=== PATIENT | male | born 1950 | race Caucasian/White ===

== ENCOUNTER 2020-09-09 11:32 | Observation (INO) | payer MEDICARE, OTHER ==
[2020-09-09] MEDS ORDERED: Sodium Chloride 0.9% 10 ML Syringe FLUSH PRN ×2 (11:47→13:13)
[2020-09-09] MEDS ORDERED: Sodium Chloride 0.9% 1,000 ML IV ONE (11:47)
--- NOTE | 2020-09-09 12:05 | EDM.PDOC ---
ED HPI GENERAL MEDICAL PROBLEM - General Chief Complaint: General Stated Complaint: GENERALIZED WEAKNESS Time Seen by Provider: 09/09/20 11:35 Source of Information: Reports: Patient, Old Records, Provider History Limitations: Reports: No Limitations - History of Present Illness INITIAL COMMENTS - FREE TEXT/NARRATIVE: 69 YO WM PRESENTS TO ER BY EMS FROM [facility] WITH GENERALIZED WEAKNESS. PT WAS RECENTLY TRANSFERRED TO [facility] AFTER CVA WITH LEFT HEMIPARESIS. PT HAS BEEN REHABBING AT [facility] BUT ACCORDING TO NURSING HE HASN'T BEEN EATING OR DRINK WELL SINCE ARRIVAL AND HAS HAD DECREASED URINE OUTPUT OVER THE LAST FEW DAYS. PT WITH HISTORY DYSPHAGIA SECONDARY TO CVA. PT HAS BEEN BECOMING MORE WEAK OVER THE LAST FEW DAYS. PROVIDER ORDERED LABS YESTERDAY WHICH REVEALED RENAL INSUFFICIENCY, WITH A CR GREATER THAN 2.0. UPON ADMISSION, PT HAD CR OF 1.0 AND NO KNOWN KIDNEY DISEASE. THIS AM PT WAS FOUND TO BE HYPOTENSIVE WITH SYSTOLIC BP LESS THAN 90. PT WAS GIVEN HIS MORNING ANTIHYPERTENSIVE MEDICATIONS PER DC RECORDS. PT DENIES CHEST PAIN, SHORTNESS OF BREATH, OR HEADACHE. PT REPORTS HIS MOUTH IS DRY AND DENIES ANY COMPLAINTS AT THIS TIME. PT IS ALERT AND ABLE TO RESPOND TO COMMANDS AND BASIC QUESTIONING APPROPRIATELY. Duration: Day(s): (2) Location: Reports: Generalized Severity: Mild Improves with: Reports: None Worsens with: Reports: None - Related Data Home Meds: Home Meds Aspirin [Aspirin EC] 81 mg PO DAILY 09/09/20 [History] ED ROS GENERAL - Review of Systems Review Of Systems: See Below Constitutional: Reports: Weakness HEENT: Reports: No Symptoms Respiratory: Reports: No Symptoms Cardiovascular: Reports: Blood Pressure Problem Endocrine: Reports: No Symptoms GI/Abdominal: Reports: Anorexia, Decreased Appetite, Difficulty Swallowing Musculoskeletal: Reports: No Symptoms Skin: Reports: No Symptoms Neurological: Reports: Pre-Existing Deficit, Difficulty Walking, Weakness Psychiatric: Reports: No Symptoms Hematologic/Lymphatic: Reports: No Symptoms Immunologic: Reports: No Symptoms ED EXAM, GENERAL - Physical Exam Exam: See Below Exam Limited By: No Limitations General Appearance: Alert, WD/WN, No Apparent Distress Eye Exam: Bilateral Eye: Corneal Abrasion, PERRL Throat/Mouth: Normal Lips, Normal Teeth, Normal Gums, Normal Oropharynx, Dysphagia, Other (DRY MUCOUS MEMBRANES) Head: Atraumatic, Normocephalic Neck: Normal Inspection, Supple, Non-Tender, Full Range of Motion Respiratory/Chest: No Respiratory Distress, Lungs Clear, Normal Breath Sounds, No Accessory Muscle Use, Chest Non-Tender Cardiovascular: Normal Peripheral Pulses, Regular Rate, Rhythm, No Edema, No Gallop, No JVD, No Murmur, No Rub, Bradycardia GI/Abdominal: Normal Bowel Sounds, Soft, Non-Tender, No Organomegaly, No Distention, No Abnormal Bruit, No Mass Back Exam: Normal Inspection Extremities: Normal Inspection, Non-Tender, No Pedal Edema, Normal Capillary Refill Neurological: Alert, CN II-XII Intact, Normal Cognition, Normal Reflexes Psychiatric: Normal Mood, Flat Affect Skin Exam: Warm, Dry, Intact, Normal Color, No Rash Lymphatic: No Adenopathy #1 Interpretation EKG Date: 09/09/20 Time: 12:06 Rhythm: NSR Rate (Beats/Min): 57 [place]: LAD-Left [place] Deviation P-Wave: Present QRS: Normal ST-T: Normal QT: Normal Comparison: NA - No Prior EKG Course - Orders/Labs/Meds Orders: Active Orders 24 hr Category Date Time Status EKG Documentation Completion [RC] ASDIRECTED Care 09/09/20 11:52 Active Peripheral IV Care [RC] . DIRECTED Care 09/09/20 11:47 Active Chest 1V Frontal [CR] Stat Exams 09/09/20 12:41 Ordered Sodium Chloride 0.9% [Saline Flush] Med 09/09/20 11:47 Active 10 ml FLUSH Q8HR PRN Peripheral IV Insertion Adult [OM.PC] Routine Oth 09/09/20 11:47 Ordered EKG 12 Lead [EK] Stat Ther 09/09/20 11:51 Ordered Medication Orders Sodium Chloride (Saline Flush) 10 ml FLUSH Q8HR PRN PRN Reason: keep vein open Labs: Laboratory Tests 09/09/20 09/09/20 09/09/20 Range/Units 11:45 11:45 11:45 WBC 8.06 (5.00-10.00) 10^3/uL RBC 4.70 (4.50-6.00) 10^6/uL Hgb 12.6 L (13.0-17.0) g/dL Hct 38.8 L (40.0-52.0) % MCV 82.6 (82.0-92.0) fL MCH 26.8 L (27.0-31.0) pg MCHC 32.5 (32.0-36.0) g/dL RDW 14.5 (11.5-14.5) % Plt Count 216 (150-400) 10^3/uL MPV 10.3 (7.4-10.4) fL Immature Gran % (Auto) 0.4 (0.0-5.0) % Neut % (Auto) 55.7 (50.0-70.0) % Lymph % (Auto) 23.9 (20.0-40.0) % [place] % (Auto) 9.2 H (2.0-8.0) % Eos % (Auto) 9.9 H (1.0-3.0) % Baso % (Auto) 0.9 (0.0-1.0) % Neut # (Auto) 4.49 (2.50-7.00) 10^3/uL Lymph # (Auto) 1.93 (1.00-4.00) 10^3/uL [place] # (Auto) 0.74 (0.10-0.80) 10^3/uL Eos # (Auto) 0.80 H (0.10-0.30) 10^3/uL Baso # (Auto) 0.07 (0.00-0.10) 10^3/uL Immature Gran # (Auto) 0.03 (0.00-0.50) 10^3/uL Sodium 145 (136-145) mmol/L Potassium 3.9 (3.5-5.1) mmol/L Chloride 107 (98-107) mmol/L Carbon Dioxide 25.0 (21.0-32.0) mmol/L Anion Gap 16.9 H (5-15) mmol/L BUN 72 H* (7-18) mg/dL Creatinine 2.49 H (0.51-1.17) mg/dL Est Cr Clr Drug Dosing TNP Estimated GFR (MDRD) 26 mL/min Glucose 230 H (70-140) mg/dL Lactic Acid 2.4 H (0.4-2.0) mmol/L Calcium 9.5 (8.7-10.3) mg/dL Troponin I (0.000-0.056) ng/mL 09/09/20 Range/Units 11:45 WBC (5.00-10.00) 10^3/uL RBC (4.50-6.00) 10^6/uL Hgb (13.0-17.0) g/dL Hct (40.0-52.0) % MCV (82.0-92.0) fL MCH (27.0-31.0) pg MCHC (32.0-36.0) g/dL RDW (11.5-14.5) % Plt Count (150-400) 10^3/uL MPV (7.4-10.4) fL Immature Gran % (Auto) (0.0-5.0) % Neut % (Auto) (50.0-70.0) % Lymph % (Auto) (20.0-40.0) % [place] % (Auto) (2.0-8.0) % Eos % (Auto) (1.0-3.0) % Baso % (Auto) (0.0-1.0) % Neut # (Auto) (2.50-7.00) 10^3/uL Lymph # (Auto) (1.00-4.00) 10^3/uL [place] # (Auto) (0.10-0.80) 10^3/uL Eos # (Auto) (0.10-0.30) 10^3/uL Baso # (Auto) (0.00-0.10) 10^3/uL Immature Gran # (Auto) (0.00-0.50) 10^3/uL Sodium (136-145) mmol/L Potassium (3.5-5.1) mmol/L Chloride (98-107) mmol/L Carbon Dioxide (21.0-32.0) mmol/L Anion Gap (5-15) mmol/L BUN (7-18) mg/dL Creatinine (0.51-1.17) mg/dL Est Cr Clr Drug Dosing Estimated GFR (MDRD) mL/min Glucose (70-140) mg/dL Lactic Acid (0.4-2.0) mmol/L Calcium (8.7-10.3) mg/dL Troponin I < 0.017 (0.000-0.056) ng/mL Meds: Medications Generic Name Dose Route Start Last Admin Trade Name Freq PRN Reason Stop Dose Admin Sodium Chloride 10 ml 09/09/20 11:47 Saline Flush FLUSH Q8HR PRN keep vein open Discontinued Medications Generic Name Dose Route Start Last Admin Trade Name Brittanie PRN Reason Stop Dose Admin Sodium Chloride 1,000 mls @ 999 mls/hr 09/09/20 11:47 Normal Saline IV 09/09/20 12:47 .BOLUS ONE - Radiology Interpretation Free Text/Narrative:: CXR- NAD - Re-Assessments/Exams Free Text/Narrative Re-Assessment/Exam: 09/09/20 13:11 BP-122/55 AFTER FLUID BOLUS-PT AWAKE AND ALERT. WILL ADMIT FOR HYDRATION AND REPEAT LABS Departure - Departure Time of Disposition: 13:10 Disposition: Refer to Observation Condition: Fair Clinical Impression: Acute renal failure, Dehydration Hypotension Qualifiers: Hypotension type: orthostatic hypotension Qualified Code(s): I95.1 - Orthostatic hypotension - Discharge Information Referrals: Addis Perea MD [Primary Care Provider] - Forms: ED Department Discharge - My Orders Last 24 Hours: My Active Orders 09/09/20 11:47 Peripheral IV Care [RC] . DIRECTED Sodium Chloride 0.9% [Saline Flush] 10 ml FLUSH Q8HR PRN Peripheral IV Insertion Adult [OM.PC] Routine 09/09/20 11:51 EKG 12 Lead [EK] Stat 09/09/20 11:52 EKG Documentation Completion [RC] ASDIRECTED 09/09/20 12:41 Chest 1V Frontal [CR] Stat - Assessment/Plan Last 24 Hours: My Active Orders 09/09/20 11:47 Peripheral IV Care [RC] . DIRECTED Sodium Chloride 0.9% [Saline Flush] 10 ml FLUSH Q8HR PRN Peripheral IV Insertion Adult [OM.PC] Routine 09/09/20 11:51 EKG 12 Lead [EK] Stat 09/09/20 11:52 EKG Documentation Completion [RC] ASDIRECTED 09/09/20 12:41 Chest 1V Frontal [CR] Stat Assessment:: 1. DEHYDRATION DUE TO DECREASED PO INTAKE 2. HYPOTENSION-IMPROVED AFTER FLUID BOLUS 3. ELEVATED LACTIC ACID- MOST LIKELY DUE TO ACIDOSIS FROM DEHYDRATION 4. RENAL INSUFFICIENCY-ACUTE RENAL [id number] AZOTEMIA Plan: 1. ADMIT TO MEDICINE- MARCELA TERESA SULPHATE TESTER- OBSERVATION 2. FLUIDS- NS@100CC/HR 3. REPEAT LABS IN AM 4. TREND LACTIC ACID 5. SUPPORTIVE CARE
[2020-09-09 12:22] LABS: ANION GAP 16.9 mmol/L (5-15); CHLORIDE,CL 107 mmol/L (98-107); SODIUM,NA 145 mmol/L (136-145)
[2020-09-09] MEDS: Sodium Chloride 0.9% 1,000 ML IV SCH ×2 (13:00→21:13)
--- NOTE | 2020-09-09 13:50 | CR ---
[id number] RAD/RAD Chest PA or AP 1V EXAM: SINGLE VIEW CHEST. INDICATION: ELEVATED LACTIC ACID COMPARISON: CORRELATION IS MADE WITH JUNE 26, 2007 FINDINGS: The lungs are clear The cardiomediastinal contour is stable IMPRESSION: NO PNEUMONIA Delbert Michael MD 09/09/20 [id number] Thank you for allowing us to participate in the care of your patient.
--- NOTE | 2020-09-09 14:33 | PCM.HP.2 ---
H&P History of Present Illness - General Date of Service: 09/09/20 Admit Problem/Dx: Admission Diagnosis/Problem Admission Diagnosis/Problem Dehydration Source of Information: Patient History Limitations: Reports: Physical Impairment, Other (h/o CVA left side, will nod head, but is not verbal at this time) - History of Present Illness Initial Comments - Free Text/Narative: 69 year old male admitted to observation status with acute kidney injury and dehydration. 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 He is a new resident to [facility] for rehab. group home reported patient had not been eating or drinking well and had decreased urine output. Lab was evaluated at the assisted on 09/08/2020 revealing a BUN 70, creatinine 2.65 and GFR 24, patient had previously had normal kidney function. He was transferred to ED via ambulance on the AM of 09/09/2020 for decreased LOC, decreased urine output and hypotension. - Related Data Allergies/Adverse Reactions: Allergies Allergy/AdvReac Type Severity Reaction Status Date / Time No Known Allergies Allergy Verified 09/09/20 16:20 Home Medications: Home Meds Acetaminophen [Tylenol] 650 mg PO Q4HR PRN 09/09/20 [History] Aspirin [Aspirin EC] 81 mg PO DAILY 09/09/20 [History] Clopidogrel Bisulfate [Clopidogrel] 75 mg PO DAILY 09/09/20 [History] Enoxaparin [Lovenox] 40 mg SUBCUT DAILY 09/09/20 [History] Mirtazapine [Remeron] 15 mg PO BEDTIME 09/09/20 [History] Multivit-Min/FA/Lycopen/Lutein [Sentry Senior Tablet] 1 tab PO ACDINNER 09/09/20 [History] RX: Escitalopram Oxalate 10 mg PO DAILY 09/09/20 [History] RX: Famotidine 20 mg PO BID 09/09/20 [History] RX: Loratadine 10 mg PO DAILY 09/09/20 [History] RX: carvediloL [Carvedilol] 25 mg PO BID 09/09/20 [History] RX: hydroCHLOROthiazide [Hydrochlorothiazide] 25 mg PO DAILY 09/09/20 [History] atorvaSTATin Calcium [Atorvastatin Calcium] 80 mg PO BEDTIME 09/09/20 [History] guaiFENesin [Guaifenesin ER] 600 mg PO Q12HR 09/09/20 [History] hydrALAZINE HCl [Hydralazine HCl] 50 mg PO TID 09/09/20 [History] lisinopriL [Lisinopril] 20 mg PO BID 09/09/20 [History] metFORMIN HCl [Metformin HCl ER] 500 mg PO BID 09/09/20 [History] Past Medical History HEENT History: Reports: Impaired Vision Cardiovascular History: Reports: Hypertension Neurological History: Reports: CVA, Speech Problems Endocrine/Metabolic History: Reports: Diabetes, Type II - Past Surgical History HEENT Surgical History: Reports: Cataract Surgery Social & Family History - Family History Family Medical History: Unobtainable - Tobacco Use Tobacco Use Status *Q: Former Tobacco User - Alcohol Use Alcohol Use History: No H&P Review of Systems - Review of Systems: Review Of Systems: See Below Free Text/Narrative: Patient denies any concerns or pain at this time by shaking his head. General: Reports: Weakness, Fatigue, Decreased Appetite. Denies: Fever, Chills HEENT: Reports: Dysphasia. Denies: Headaches, Sore Throat, Visual Changes Pulmonary: Denies: Shortness of Breath, Cough, Sputum Cardiovascular: Denies: Chest Pain, Palpitations, Edema, Lightheadedness Gastrointestinal: Reports: Decreased Appetite, Difficulty Swallowing. Denies: Abdominal Pain, Constipation, Diarrhea, Nausea, Vomiting Genitourinary: Denies: Dysuria, Hematuria, Flank Pain Musculoskeletal: Denies: Neck Pain, Shoulder Pain, Muscle Pain Skin: Reports: Bruising (on abdomen). Denies: Rash, Erythema Psychiatric: Denies: Confusion, Anxiety, Agitation Neurological: Reports: Paresthesia (left), Pre-Existing Deficit (left), Trouble Speaking. Denies: Confusion, Headache Hematologic/Lymphatic: Denies: Swollen Glands Exam - Exam Exam: See Below - Exam Physical Exam Comments:: GENERAL: Ill-appearing adult in no acute distress. Sleeping in bed, arouses easily when name said HEENT: Normocephalic, atraumatic. Conjunctiva clear. Nares patent without discharge. Mucous membranes dry NECK: Supple, no masses. CV: Regular rate and rhythm, 3/6 systolic murmur, no rubs or gallops. 2+ radial pulses. PULMONARY: Normal effort, crackles noted to bilateral bases that clear with deep breathing, lungs are diminished. ABDOMEN: Positive bowel sounds, soft, nontender, nondistended. Easily reducible umbilical hernia present EXTREMITIES: No edema, cyanosis, or clubbing. MUSCULOSKELETAL: Pre-existing left sided weakness NEUROLOGICAL: No obvious deficits. DERMATOLOGIC: No rashes or suspicious lesions in exposed areas. He does have bruising on his abdomen, likely due to Lovenox injections PSYCHIATRIC: Alert, appropriate affect. Responds by shaking or nodding head and one to two word phrases. - Patient Data Lab Results Last 24 hrs: Laboratory Results - last 24 hr 09/09/20 09/09/20 09/09/20 Range/Units 11:45 11:45 11:45 WBC 8.06 (5.00-10.00) 10^3/uL RBC 4.70 (4.50-6.00) 10^6/uL Hgb 12.6 L (13.0-17.0) g/dL Hct 38.8 L (40.0-52.0) % MCV 82.6 (82.0-92.0) fL MCH 26.8 L (27.0-31.0) pg MCHC 32.5 (32.0-36.0) g/dL RDW 14.5 (11.5-14.5) % Plt Count 216 (150-400) 10^3/uL MPV 10.3 (7.4-10.4) fL Immature Gran % (Auto) 0.4 (0.0-5.0) % Neut % (Auto) 55.7 (50.0-70.0) % Lymph % (Auto) 23.9 (20.0-40.0) % [place] % (Auto) 9.2 H (2.0-8.0) % Eos % (Auto) 9.9 H (1.0-3.0) % Baso % (Auto) 0.9 (0.0-1.0) % Neut # (Auto) 4.49 (2.50-7.00) 10^3/uL Lymph # (Auto) 1.93 (1.00-4.00) 10^3/uL [place] # (Auto) 0.74 (0.10-0.80) 10^3/uL Eos # (Auto) 0.80 H (0.10-0.30) 10^3/uL Baso # (Auto) 0.07 (0.00-0.10) 10^3/uL Immature Gran # (Auto) 0.03 (0.00-0.50) 10^3/uL Sodium 145 (136-145) mmol/L Potassium 3.9 (3.5-5.1) mmol/L Chloride 107 (98-107) mmol/L Carbon Dioxide 25.0 (21.0-32.0) mmol/L Anion Gap 16.9 H (5-15) mmol/L BUN 72 H* (7-18) mg/dL Creatinine 2.49 H (0.51-1.17) mg/dL Est Cr Clr Drug Dosing TNP Estimated GFR (MDRD) 26 mL/min Glucose 230 H (70-140) mg/dL Lactic Acid 2.4 H (0.4-2.0) mmol/L Calcium 9.5 (8.7-10.3) mg/dL Troponin I (0.000-0.056) ng/mL 09/09/20 Range/Units 11:45 WBC (5.00-10.00) 10^3/uL RBC (4.50-6.00) 10^6/uL Hgb (13.0-17.0) g/dL Hct (40.0-52.0) % MCV (82.0-92.0) fL MCH (27.0-31.0) pg MCHC (32.0-36.0) g/dL RDW (11.5-14.5) % Plt Count (150-400) 10^3/uL MPV (7.4-10.4) fL Immature Gran % (Auto) (0.0-5.0) % Neut % (Auto) (50.0-70.0) % Lymph % (Auto) (20.0-40.0) % [place] % (Auto) (2.0-8.0) % Eos % (Auto) (1.0-3.0) % Baso % (Auto) (0.0-1.0) % Neut # (Auto) (2.50-7.00) 10^3/uL Lymph # (Auto) (1.00-4.00) 10^3/uL [place] # (Auto) (0.10-0.80) 10^3/uL Eos # (Auto) (0.10-0.30) 10^3/uL Baso # (Auto) (0.00-0.10) 10^3/uL Immature Gran # (Auto) (0.00-0.50) 10^3/uL Sodium (136-145) mmol/L Potassium (3.5-5.1) mmol/L Chloride (98-107) mmol/L Carbon Dioxide (21.0-32.0) mmol/L Anion Gap (5-15) mmol/L BUN (7-18) mg/dL Creatinine (0.51-1.17) mg/dL Est Cr Clr Drug Dosing Estimated GFR (MDRD) mL/min Glucose (70-140) mg/dL Lactic Acid (0.4-2.0) mmol/L Calcium (8.7-10.3) mg/dL Troponin I < 0.017 (0.000-0.056) ng/mL Result Diagrams: 09/09/20 11:45 09/09/20 11:45 Problem List Initiated/Reviewed/Updated: Yes Orders Last 24hrs: Active Orders 24 hr Category Date Time Status Patient Status Manage Transfer [TRANSFER] Routine ADT 09/09/20 13:12 Active Patient Status [ADT] Routine ADT 09/09/20 13:13 Active EKG Documentation Completion [RC] ASDIRECTED Care 09/09/20 11:52 Active Oxygen Therapy [RC] PRN Care 09/09/20 13:13 Active Peripheral IV Care [RC] . DIRECTED Care 09/09/20 11:47 Active Peripheral IV Care [RC] . DIRECTED Care 09/09/20 13:14 Active Up With Assistance [RC] ASDIRECTED Care 09/09/20 13:13 Active VTE/DVT Education [RC] PER UNIT ROUTINE Care 09/09/20 13:13 Active Vital Signs [RC] Q4H Care 09/09/20 13:13 Active CORONAVIRUS COVID-19 RAPID [MOLEC] Stat Lab 09/09/20 14:13 Ordered Sodium Chloride 0.9% [Normal Saline] 1,000 ml Med 09/09/20 13:15 Active IV ASDIRECTED Sodium Chloride 0.9% [Saline Flush] Med 09/09/20 11:47 Active 10 ml FLUSH Q8HR PRN Sodium Chloride 0.9% [Saline Flush] Med 09/09/20 13:13 Active 10 ml FLUSH Q8HR PRN Peripheral IV Insertion Adult [OM.PC] Routine Oth 09/09/20 11:47 Ordered Peripheral IV Insertion Adult [OM.PC] Routine Oth 09/09/20 13:13 Ordered Resuscitation Status Routine Resus Stat 09/09/20 13:13 Ordered EKG 12 Lead [EK] Stat Ther 09/09/20 11:51 Ordered Medication Orders Sodium Chloride (Normal Saline) 1,000 mls @ 100 mls/hr IV ASDIRECTED HILDA Sodium Chloride (Saline Flush) 10 ml FLUSH Q8HR PRN PRN Reason: keep vein open Sodium Chloride (Saline Flush) 10 ml FLUSH Q8HR PRN PRN Reason: keep vein open Assessment/Plan Comment:: HPI summary: 69 year old male admitted to observation status with acute kidney injury and dehydration. 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 He is a new resident to [facility] for rehab. group home reported patient had not been eating or drinking well and had decreased urine output. Lab was evaluated at the assisted on 09/08/2020 revealing a BUN 70, creatinine 2.65 and GFR 24, patient had previously had normal kidney function. He was gonzalez sferred to ED via ambulance on the AM of 09/09/2020 for decreased LOC, decreased urine output and hypotension. ED course: -Lab: WBC 8.06, Hgb 12.6 (baseline 12.1), Hct 38.8, Neut 55.7, Na 145, K 3.9, Cl 107, CO2 25, anion gap 16.9, BUN 72, Creatinine 2.49 (baseline 1.06), GFR 26 (baseline 69), lactic acid 2.4, calcium 9.5, troponin <0.017 -EKG: NSR, rate 57, Left axis deviation, no ST changes -CXR: lungs are clear, stable cardiomediastinal contour -VS: on arrival T97.1, P62, R12, O2sat 88%/RA, BP 75/43 on admit: T36.3, P66, R 20, O2 sat 94%/RA, BP 120/55 -NS 1 liter bolus x 1, then NS @ 100mL/hr -Admitted observation status Hospital course: 09/09/2020: Patient sleeping in bed, arouses easily to name. Shakes and nods head appropriate and answers in one to two word sentences. Call placed to [facility] and this is baseline for patient. Pre-existing left sided weakness/paresthesia. Patient was a two-assist pivot transfer upon arrival at [facility], but has changed to need for [place] lift over the past w [place]. 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 - Continue ASA, Plavix and Lovenox daily Chronic, stable conditions: #Essential hypertension, hold antihypertensives for now #Microcytosis #Blindness of right eye, stable #Hemiplegia and hemiparesis following cerebral infarction affecting left non- dominant side, stable #Cerebellar infarction #Dysarthria due to acute cerebrovascular accident #Cognitive deficit S/P CVA (cerebrovascular accident) #Impaired activities of daily living #Impaired gait and mobility #Impaired instrumental activities of daily living (IADL) #Impairment of balance #Coordination impairment Hospitalization details: # FEN: NS at 100mL/hr; electrolytes stable; # PPX: Continue ASA, Plavix and Lovenox # Code status: DNR/DNI # Emergency contact: Ghislaine () # Disposition: return to [facility] pending improvement in renal function - Mortality Measure Prognosis:: Good
[2020-09-09] MEDS ORDERED: Acetaminophen 325 MG Tab PO PRN (16:20)
[2020-09-09] MEDS ORDERED: 50% Dextrose in Water 50 ML Syringe IV PRN (17:19)
[2020-09-09] MEDS ORDERED: Glucagon,Human Recombinant 1 MG Vial IM PRN (17:19)
[2020-09-09] MEDS: Insulin Aspart 100 Units/ML 3 ML Pen SUBCUT SCH ×2 (18:24→21:23)
[2020-09-09] MEDS: atorvaSTATin 40 MG Tab PO SCH (21:15)
[2020-09-10] MEDS: Sodium Chloride 0.9% 1,000 ML IV SCH (07:17)
[2020-09-10] MEDS: Insulin Aspart 100 Units/ML 3 ML Pen SUBCUT SCH ×4 (07:46→21:06)
[2020-09-10 08:07] LABS: ANION GAP 16.2 mmol/L (5-15)
[2020-09-10] MEDS: Aspirin 81 MG Tab.EC PO SCH (08:45)
[2020-09-10] MEDS: Enoxaparin 30 MG/0.3 ML Syringe SUBCUT SCH (08:45)
[2020-09-10] MEDS: Loratadine 10 MG Tab PO SCH (08:45)
[2020-09-10] MEDS: Famotidine 20 MG Tab PO SCH (08:45)
[2020-09-10] MEDS: Clopidogrel 75 MG Tab PO SCH (08:45)
[2020-09-10] MEDS ORDERED: hydrALAZINE 50 MG Tab PO SCH (11:30)
--- NOTE | 2020-09-10 11:39 | PCM.PN ---
- General Info Date of Service: 09/10/20 Subjective Update: 69 year old male reports no overnight concerns. Denies pain. He does have decreased appetite and drive to eat. No chest pain, shortness of breath. Functional Status: Reports: Pain Controlled, Urinating. Denies: Tolerating Diet (decreased appetite) - Review of Systems General: Reports: Appetite (decreased). Denies: Weakness, Fatigue, Chills HEENT: Reports: Dysphasia (pre-existing). Denies: Headaches, Sinus Congestion, Sore Throat Pulmonary: Denies: Shortness of Breath, Cough, Sputum, Wheezing Cardiovascular: Denies: Chest Pain, Palpitations, Edema, Lightheadedness Gastrointestinal: Reports: Decreased Appetite. Denies: Abdominal Pain, Diarrhea, Nausea, Vomiting Genitourinary: Denies: Dysuria, Frequency, Pain, Hematuria Musculoskeletal: Denies: Neck Pain, Back Pain, Leg Pain Skin: Denies: Jaundice, Dryness, Rash Neurological: Reports: Trouble Speaking (speaks in two to three word sentences). Denies: Confusion, Headache Psychiatric: Denies: Confusion, Depression, Anxiety - Patient Data Vitals - Most Recent: Last Vital Signs Temp 36.3 C 09/10/20 07:00 Pulse 65 09/10/20 07:00 Resp 16 09/10/20 07:00 BP 175/73 H 09/10/20 07:00 Pulse Ox 95 09/10/20 07:00 Weight - Most Recent: 78.562 kg I&O - Last 24 Hours: Intake & Output 09/09/20 09/10/20 09/10/20 22:59 06:59 14:59 Intake Total 2192 762 Balance 2192 762 Lab Results Last 24 Hours: Laboratory Results - last 24 hr 09/09/20 09/09/20 09/09/20 Range/Units 11:45 11:45 11:45 WBC 8.06 (5.00-10.00) 10^3/uL RBC 4.70 (4.50-6.00) 10^6/uL Hgb 12.6 L (13.0-17.0) g/dL Hct 38.8 L (40.0-52.0) % MCV 82.6 (82.0-92.0) fL MCH 26.8 L (27.0-31.0) pg MCHC 32.5 (32.0-36.0) g/dL RDW 14.5 (11.5-14.5) % Plt Count 216 (150-400) 10^3/uL MPV 10.3 (7.4-10.4) fL Immature Gran % (Auto) 0.4 (0.0-5.0) % Neut % (Auto) 55.7 (50.0-70.0) % Lymph % (Auto) 23.9 (20.0-40.0) % [place] % (Auto) 9.2 H (2.0-8.0) % Eos % (Auto) 9.9 H (1.0-3.0) % Baso % (Auto) 0.9 (0.0-1.0) % Neut # (Auto) 4.49 (2.50-7.00) 10^3/uL Lymph # (Auto) 1.93 (1.00-4.00) 10^3/uL [place] # (Auto) 0.74 (0.10-0.80) 10^3/uL Eos # (Auto) 0.80 H (0.10-0.30) 10^3/uL Baso # (Auto) 0.07 (0.00-0.10) 10^3/uL Immature Gran # (Auto) 0.03 (0.00-0.50) 10^3/uL Add Manual Diff Neutrophils % (Manual) (50-70) % Lymphocytes % (Manual) (20-40) % Monocytes % (Manual) (2-8) % Eosinophils % (Manual) (1-3) % Absolute Neutrophils Lymphocytes # (Manual) Monocytes # (Manual) Eosinophils # (Manual) Sodium 145 (136-145) mmol/L Potassium 3.9 (3.5-5.1) mmol/L Chloride 107 (98-107) mmol/L Carbon Dioxide 25.0 (21.0-32.0) mmol/L Anion Gap 16.9 H (5-15) mmol/L BUN 72 H* (7-18) mg/dL Creatinine 2.49 H (0.51-1.17) mg/dL Est Cr Clr Drug Dosing TNP Estimated GFR (MDRD) 26 mL/min Glucose 230 H (70-140) mg/dL POC Glucose (74-106) mg/dl Lactic Acid 2.4 H (0.4-2.0) mmol/L Calcium 9.5 (8.7-10.3) mg/dL Troponin I (0.000-0.056) ng/mL C-Reactive Protein (0.0-0.9) mg/dL B-Natriuretic Peptide (0-100) pg/mL SARS CoV-2 RNA Rapid RICHARD (NEGATIVE) 09/09/20 09/09/20 09/09/20 Range/Units 11:45 14:50 18:01 WBC (5.00-10.00) 10^3/uL RBC (4.50-6.00) 10^6/uL Hgb (13.0-17.0) g/dL Hct (40.0-52.0) % MCV (82.0-92.0) fL MCH (27.0-31.0) pg MCHC (32.0-36.0) g/dL RDW (11.5-14.5) % Plt Count (150-400) 10^3/uL MPV (7.4-10.4) fL Immature Gran % (Auto) (0.0-5.0) % Neut % (Auto) (50.0-70.0) % Lymph % (Auto) (20.0-40.0) % [place] % (Auto) (2.0-8.0) % Eos % (Auto) (1.0-3.0) % Baso % (Auto) (0.0-1.0) % Neut # (Auto) (2.50-7.00) 10^3/uL Lymph # (Auto) (1.00-4.00) 10^3/uL [place] # (Auto) (0.10-0.80) 10^3/uL Eos # (Auto) (0.10-0.30) 10^3/uL Baso # (Auto) (0.00-0.10) 10^3/uL Immature Gran # (Auto) (0.00-0.50) 10^3/uL Add Manual Diff Neutrophils % (Manual) (50-70) % Lymphocytes % (Manual) (20-40) % Monocytes % (Manual) (2-8) % Eosinophils % (Manual) (1-3) % Absolute Neutrophils Lymphocytes # (Manual) Monocytes # (Manual) Eosinophils # (Manual) Sodium (136-145) mmol/L Potassium (3.5-5.1) mmol/L Chloride (98-107) mmol/L Carbon Dioxide (21.0-32.0) mmol/L Anion Gap (5-15) mmol/L BUN (7-18) mg/dL Creatinine (0.51-1.17) mg/dL Est Cr Clr Drug Dosing Estimated GFR (MDRD) mL/min Glucose (70-140) mg/dL POC Glucose 145 H (74-106) mg/dl Lactic Acid (0.4-2.0) mmol/L Calcium (8.7-10.3) mg/dL Troponin I < 0.017 (0.000-0.056) ng/mL C-Reactive Protein (0.0-0.9) mg/dL B-Natriuretic Peptide (0-100) pg/mL SARS CoV-2 RNA Rapid RICHARD Negative (NEGATIVE) 09/09/20 09/09/20 09/09/20 Range/Units 19:25 19:25 21:15 WBC (5.00-10.00) 10^3/uL RBC (4.50-6.00) 10^6/uL Hgb (13.0-17.0) g/dL Hct (40.0-52.0) % MCV (82.0-92.0) fL MCH (27.0-31.0) pg MCHC (32.0-36.0) g/dL RDW (11.5-14.5) % Plt Count (150-400) 10^3/uL MPV (7.4-10.4) fL Immature Gran % (Auto) (0.0-5.0) % Neut % (Auto) (50.0-70.0) % Lymph % (Auto) (20.0-40.0) % [place] % (Auto) (2.0-8.0) % Eos % (Auto) (1.0-3.0) % Baso % (Auto) (0.0-1.0) % Neut # (Auto) (2.50-7.00) 10^3/uL Lymph # (Auto) (1.00-4.00) 10^3/uL [place] # (Auto) (0.10-0.80) 10^3/uL Eos # (Auto) (0.10-0.30) 10^3/uL Baso # (Auto) (0.00-0.10) 10^3/uL Immature Gran # (Auto) (0.00-0.50) 10^3/uL Add Manual Diff Neutrophils % (Manual) (50-70) % Lymphocytes % (Manual) (20-40) % Monocytes % (Manual) (2-8) % Eosinophils % (Manual) (1-3) % Absolute Neutrophils Lymphocytes # (Manual) Monocytes # (Manual) Eosinophils # (Manual) Sodium (136-145) mmol/L Potassium (3.5-5.1) mmol/L Chloride (98-107) mmol/L Carbon Dioxide (21.0-32.0) mmol/L Anion Gap (5-15) mmol/L BUN (7-18) mg/dL Creatinine (0.51-1.17) mg/dL Est Cr Clr Drug Dosing Estimated GFR (MDRD) mL/min Glucose (70-140) mg/dL POC Glucose 127 H (74-106) mg/dl Lactic Acid 1.2 (0.4-2.0) mmol/L Calcium (8.7-10.3) mg/dL Troponin I (0.000-0.056) ng/mL C-Reactive Protein 1.2 H (0.0-0.9) mg/dL B-Natriuretic Peptide 29 (0-100) pg/mL SARS CoV-2 RNA Rapid RICHARD (NEGATIVE) 09/10/20 09/10/20 09/10/20 Range/Units 07:20 07:20 07:39 WBC 5.97 (5.00-10.00) 10^3/uL RBC 4.13 L (4.50-6.00) 10^6/uL Hgb 11.2 L (13.0-17.0) g/dL Hct 34.4 L (40.0-52.0) % MCV 83.3 (82.0-92.0) fL MCH 27.1 (27.0-31.0) pg MCHC 32.6 (32.0-36.0) g/dL RDW 14.6 H (11.5-14.5) % Plt Count 177 (150-400) 10^3/uL MPV 10.3 (7.4-10.4) fL Immature Gran % (Auto) (0.0-5.0) % Neut % (Auto) (50.0-70.0) % Lymph % (Auto) (20.0-40.0) % [place] % (Auto) (2.0-8.0) % Eos % (Auto) (1.0-3.0) % Baso % (Auto) (0.0-1.0) % Neut # (Auto) (2.50-7.00) 10^3/uL Lymph # (Auto) (1.00-4.00) 10^3/uL [place] # (Auto) (0.10-0.80) 10^3/uL Eos # (Auto) (0.10-0.30) 10^3/uL Baso # (Auto) (0.00-0.10) 10^3/uL Immature Gran # (Auto) (0.00-0.50) 10^3/uL Add Manual Diff Yes Neutrophils % (Manual) 54 (50-70) % Lymphocytes % (Manual) 25 (20-40) % Monocytes % (Manual) 8 (2-8) % Eosinophils % (Manual) 13 H (1-3) % Absolute Neutrophils 3.2238 Lymphocytes # (Manual) 1.4925 Monocytes # (Manual) 0.4776 Eosinophils # (Manual) 0.7761 Sodium 148 H (136-145) mmol/L Potassium 3.7 (3.5-5.1) mmol/L Chloride 112 H (98-107) mmol/L Carbon Dioxide 23.5 (21.0-32.0) mmol/L Anion Gap 16.2 H (5-15) mmol/L BUN 53 H* (7-18) mg/dL Creatinine 1.54 H (0.51-1.17) mg/dL Est Cr Clr Drug Dosing 46.09 Estimated GFR (MDRD) 45 mL/min Glucose 150 H (70-140) mg/dL POC Glucose 134 H (74-106) mg/dl Lactic Acid (0.4-2.0) mmol/L Calcium 8.4 L (8.7-10.3) mg/dL Troponin I (0.000-0.056) ng/mL C-Reactive Protein (0.0-0.9) mg/dL B-Natriuretic Peptide (0-100) pg/mL SARS CoV-2 RNA Rapid RICHARD (NEGATIVE) Med Orders - Current: Current Medications Acetaminophen (Tylenol) 650 mg PO Q4HR PRN PRN Reason: Pain Aspirin (Halfprin) 81 mg PO DAILY [facility] Last Admin: 09/10/20 08:45 Dose: 81 mg Documented by: Atorvastatin Calcium (Lipitor) 80 mg PO BEDTIME [facility] Last Admin: 09/09/20 21:15 Dose: 80 mg Documented by: Carvedilol (Coreg) 12.5 mg PO BIDMEALS [facility] Clopidogrel Bisulfate (Plavix) 75 mg PO DAILY [facility] Last Admin: 09/10/20 08:45 Dose: 75 mg Documented by: Dextrose/Water (Dextrose 50% In Water) 50 ml IV ASDIRECTED PRN PRN Reason: Hypoglycemia Enoxaparin Sodium (Lovenox) 30 mg SUBCUT DAILY [facility] Last Admin: 09/10/20 08:45 Dose: 30 mg Documented by: Famotidine (Pepcid) 20 mg PO DAILY [facility] Last Admin: 09/10/20 08:45 Dose: 20 mg Documented by: Glucagon (Glucagen) 1 mg IM ASDIRECTED PRN PRN Reason: Hypoglycemia Hydralazine HCl (Apresoline) 50 mg PO Q12HR [facility] Sodium Chloride (Normal Saline) 1,000 mls @ 30 mls/hr IV ASDIRECTED [facility] Last Admin: 09/10/20 07:17 Dose: 100 mls/hr Documented by: Insulin Aspart (Novolog) 0 unit SUBCUT WITHMEALSANDBED [facility]; Protocol Last Admin: 09/10/20 07:46 Dose: Not Given Documented by: Loratadine (Claritin) 10 mg PO DAILY [facility] Last Admin: 09/10/20 08:45 Dose: 10 mg Documented by: Mirtazapine (Remeron) 15 mg PO BEDTIME [facility] Sodium Chloride (Saline Flush) 10 ml FLUSH Q8HR PRN PRN Reason: keep vein open Discontinued Medications Sodium Chloride (Normal Saline) 1,000 mls @ 999 mls/hr IV .BOLUS ONE Stop: 09/09/20 12:47 Last Admin: 09/09/20 11:45 Dose: 999 mls/hr Documented by: Sodium Chloride (Saline Flush) 10 ml FLUSH Q8HR PRN PRN Reason: keep vein open - Exam Physical Findings Comments:: GENERAL: Well-appearing adult in no acute distress. Lying in bed. HEENT: Normocephalic, atraumatic. Conjunctiva clear. Nares patent without discharge. Mucous membranes moist, posterior pharynx unremarkable. NECK: Supple, no masses. CV: Regular rate and rhythm, 3/6 systolic murmur, no rubs or gallops. 2+ radial pulses. PULMONARY: Normal effort, fine crackles to bilateral bases, no wheezes, rales, or rhonchi. ABDOMEN: Positive bowel sounds, soft, nontender, nondistended. EXTREMITIES: No edema, cyanosis, or clubbing. 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 NEUROLOGICAL: Alert. Answers questions. Follows commands. Pre-existing left sided weakness DERMATOLOGIC: No rashes or suspicious lesions in exposed areas. PSYCHIATRIC: Alert, appropriate affect. - Patient Data Lab Results Last 24 hrs: Laboratory Results - last 24 hr 09/09/20 09/09/20 09/09/20 Range/Units 11:45 11:45 11:45 WBC 8.06 (5.00-10.00) 10^3/uL RBC 4.70 (4.50-6.00) 10^6/uL Hgb 12.6 L (13.0-17.0) g/dL Hct 38.8 L (40.0-52.0) % MCV 82.6 (82.0-92.0) fL MCH 26.8 L (27.0-31.0) pg MCHC 32.5 (32.0-36.0) g/dL RDW 14.5 (11.5-14.5) % Plt Count 216 (150-400) 10^3/uL MPV 10.3 (7.4-10.4) fL Immature Gran % (Auto) 0.4 (0.0-5.0) % Neut % (Auto) 55.7 (50.0-70.0) % Lymph % (Auto) 23.9 (20.0-40.0) % [place] % (Auto) 9.2 H (2.0-8.0) % Eos % (Auto) 9.9 H (1.0-3.0) % Baso % (Auto) 0.9 (0.0-1.0) % Neut # (Auto) 4.49 (2.50-7.00) 10^3/uL Lymph # (Auto) 1.93 (1.00-4.00) 10^3/uL [place] # (Auto) 0.74 (0.10-0.80) 10^3/uL Eos # (Auto) 0.80 H (0.10-0.30) 10^3/uL Baso # (Auto) 0.07 (0.00-0.10) 10^3/uL Immature Gran # (Auto) 0.03 (0.00-0.50) 10^3/uL Add Manual Diff Neutrophils % (Manual) (50-70) % Lymphocytes % (Manual) (20-40) % Monocytes % (Manual) (2-8) % Eosinophils % (Manual) (1-3) % Absolute Neutrophils Lymphocytes # (Manual) Monocytes # (Manual) Eosinophils # (Manual) Sodium 145 (136-145) mmol/L Potassium 3.9 (3.5-5.1) mmol/L Chloride 107 (98-107) mmol/L Carbon Dioxide 25.0 (21.0-32.0) mmol/L Anion Gap 16.9 H (5-15) mmol/L BUN 72 H* (7-18) mg/dL Creatinine 2.49 H (0.51-1.17) mg/dL Est Cr Clr Drug Dosing TNP Estimated GFR (MDRD) 26 mL/min Glucose 230 H (70-140) mg/dL POC Glucose (74-106) mg/dl Lactic Acid 2.4 H (0.4-2.0) mmol/L Calcium 9.5 (8.7-10.3) mg/dL Troponin I (0.000-0.056) ng/mL C-Reactive Protein (0.0-0.9) mg/dL B-Natriuretic Peptide (0-100) pg/mL SARS CoV-2 RNA Rapid RICHARD (NEGATIVE) 09/09/20 09/09/20 09/09/20 Range/Units 11:45 14:50 18:01 WBC (5.00-10.00) 10^3/uL RBC (4.50-6.00) 10^6/uL Hgb (13.0-17.0) g/dL Hct (40.0-52.0) % MCV (82.0-92.0) fL MCH (27.0-31.0) pg MCHC (32.0-36.0) g/dL RDW (11.5-14.5) % Plt Count (150-400) 10^3/uL MPV (7.4-10.4) fL Immature Gran % (Auto) (0.0-5.0) % Neut % (Auto) (50.0-70.0) % Lymph % (Auto) (20.0-40.0) % [place] % (Auto) (2.0-8.0) % Eos % (Auto) (1.0-3.0) % Baso % (Auto) (0.0-1.0) % Neut # (Auto) (2.50-7.00) 10^3/uL Lymph # (Auto) (1.00-4.00) 10^3/uL [place] # (Auto) (0.10-0.80) 10^3/uL Eos # (Auto) (0.10-0.30) 10^3/uL Baso # (Auto) (0.00-0.10) 10^3/uL Immature Gran # (Auto) (0.00-0.50) 10^3/uL Add Manual Diff Neutrophils % (Manual) (50-70) % Lymphocytes % (Manual) (20-40) % Monocytes % (Manual) (2-8) % Eosinophils % (Manual) (1-3) % Absolute Neutrophils Lymphocytes # (Manual) Monocytes # (Manual) Eosinophils # (Manual) Sodium (136-145) mmol/L Potassium (3.5-5.1) mmol/L Chloride (98-107) mmol/L Carbon Dioxide (21.0-32.0) mmol/L Anion Gap (5-15) mmol/L BUN (7-18) mg/dL Creatinine (0.51-1.17) mg/dL Est Cr Clr Drug Dosing Estimated GFR (MDRD) mL/min Glucose (70-140) mg/dL POC Glucose 145 H (74-106) mg/dl Lactic Acid (0.4-2.0) mmol/L Calcium (8.7-10.3) mg/dL Troponin I < 0.017 (0.000-0.056) ng/mL C-Reactive Protein (0.0-0.9) mg/dL B-Natriuretic Peptide (0-100) pg/mL SARS CoV-2 RNA Rapid RICHARD Negative (NEGATIVE) 09/09/20 09/09/20 09/09/20 Range/Units 19:25 19:25 21:15 WBC (5.00-10.00) 10^3/uL RBC (4.50-6.00) 10^6/uL Hgb (13.0-17.0) g/dL Hct (40.0-52.0) % MCV (82.0-92.0) fL MCH (27.0-31.0) pg MCHC (32.0-36.0) g/dL RDW (11.5-14.5) % Plt Count (150-400) 10^3/uL MPV (7.4-10.4) fL Immature Gran % (Auto) (0.0-5.0) % Neut % (Auto) (50.0-70.0) % Lymph % (Auto) (20.0-40.0) % [place] % (Auto) (2.0-8.0) % Eos % (Auto) (1.0-3.0) % Baso % (Auto) (0.0-1.0) % Neut # (Auto) (2.50-7.00) 10^3/uL Lymph # (Auto) (1.00-4.00) 10^3/uL [place] # (Auto) (0.10-0.80) 10^3/uL Eos # (Auto) (0.10-0.30) 10^3/uL Baso # (Auto) (0.00-0.10) 10^3/uL Immature Gran # (Auto) (0.00-0.50) 10^3/uL Add Manual Diff Neutrophils % (Manual) (50-70) % Lymphocytes % (Manual) (20-40) % Monocytes % (Manual) (2-8) % Eosinophils % (Manual) (1-3) % Absolute Neutrophils Lymphocytes # (Manual) Monocytes # (Manual) Eosinophils # (Manual) Sodium (136-145) mmol/L Potassium (3.5-5.1) mmol/L Chloride (98-107) mmol/L Carbon Dioxide (21.0-32.0) mmol/L Anion Gap (5-15) mmol/L BUN (7-18) mg/dL Creatinine (0.51-1.17) mg/dL Est Cr Clr Drug Dosing Estimated GFR (MDRD) mL/min Glucose (70-140) mg/dL POC Glucose 127 H (74-106) mg/dl Lactic Acid 1.2 (0.4-2.0) mmol/L Calcium (8.7-10.3) mg/dL Troponin I (0.000-0.056) ng/mL C-Reactive Protein 1.2 H (0.0-0.9) mg/dL B-Natriuretic Peptide 29 (0-100) pg/mL SARS CoV-2 RNA Rapid RICHARD (NEGATIVE) 09/10/20 09/10/20 09/10/20 Range/Units 07:20 07:20 07:39 WBC 5.97 (5.00-10.00) 10^3/uL RBC 4.13 L (4.50-6.00) 10^6/uL Hgb 11.2 L (13.0-17.0) g/dL Hct 34.4 L (40.0-52.0) % MCV 83.3 (82.0-92.0) fL MCH 27.1 (27.0-31.0) pg MCHC 32.6 (32.0-36.0) g/dL RDW 14.6 H (11.5-14.5) % Plt Count 177 (150-400) 10^3/uL MPV 10.3 (7.4-10.4) fL Immature Gran % (Auto) (0.0-5.0) % Neut % (Auto) (50.0-70.0) % Lymph % (Auto) (20.0-40.0) % [place] % (Auto) (2.0-8.0) % Eos % (Auto) (1.0-3.0) % Baso % (Auto) (0.0-1.0) % Neut # (Auto) (2.50-7.00) 10^3/uL Lymph # (Auto) (1.00-4.00) 10^3/uL [place] # (Auto) (0.10-0.80) 10^3/uL Eos # (Auto) (0.10-0.30) 10^3/uL Baso # (Auto) (0.00-0.10) 10^3/uL Immature Gran # (Auto) (0.00-0.50) 10^3/uL Add Manual Diff Yes Neutrophils % (Manual) 54 (50-70) % Lymphocytes % (Manual) 25 (20-40) % Monocytes % (Manual) 8 (2-8) % Eosinophils % (Manual) 13 H (1-3) % Absolute Neutrophils 3.2238 Lymphocytes # (Manual) 1.4925 Monocytes # (Manual) 0.4776 Eosinophils # (Manual) 0.7761 Sodium 148 H (136-145) mmol/L Potassium 3.7 (3.5-5.1) mmol/L Chloride 112 H (98-107) mmol/L Carbon Dioxide 23.5 (21.0-32.0) mmol/L Anion Gap 16.2 H (5-15) mmol/L BUN 53 H* (7-18) mg/dL Creatinine 1.54 H (0.51-1.17) mg/dL Est Cr Clr Drug Dosing 46.09 Estimated GFR (MDRD) 45 mL/min Glucose 150 H (70-140) mg/dL POC Glucose 134 H (74-106) mg/dl Lactic Acid (0.4-2.0) mmol/L Calcium 8.4 L (8.7-10.3) mg/dL Troponin I (0.000-0.056) ng/mL C-Reactive Protein (0.0-0.9) mg/dL B-Natriuretic Peptide (0-100) pg/mL SARS CoV-2 RNA Rapid RICHARD (NEGATIVE) Result Diagrams: 09/10/20 07:20 09/10/20 07:20 Sepsis Event Note - Evaluation Sepsis Screening Result: No Definite Risk - Focused Exam Vital Signs: Vital Signs Temp Pulse Resp BP Pulse Ox 09/10/20 07:00 36.3 C 65 16 175/73 H 95 09/10/20 02:49 36.1 C 65 16 150/66 H 94 L - Problem List Review Problem List Initiated/Reviewed/Updated: Yes - My Orders Last 24 Hours: My Active Orders 09/09/20 15:51 Patient Status [ADT] Routine Oxygen Therapy [RC] PRN VTE/DVT Education [RC] PER UNIT ROUTINE Vital Signs [RC] Q4H 09/09/20 15:53 Intake and Output [RC] 1400,2200,0600 09/09/20 16:20 Acetaminophen [TylenoL] 650 mg PO Q4HR PRN 09/09/20 17:19 Blood Glucose Check, Bedside [RC] QIDACANDBED Dextrose 50% in Water 50 ml IV ASDIRECTED PRN Glucagon,Human Recombinant [GlucaGen] 1 mg IM ASDIRECTED PRN 09/09/20 18:00 Insulin Aspart [NovoLOG] See Protocol SUBCUT WITHMEALSANDBED 09/09/20 21:00 atorvaSTATin [Lipitor] 80 mg PO BEDTIME 09/10/20 Breakfast ADA Diabetic [[employer] Diet] [DIET] 09/10/20 09:00 Aspirin [Halfprin] 81 mg PO DAILY Clopidogrel [Plavix] 75 mg PO DAILY Enoxaparin [Lovenox] 30 mg SUBCUT DAILY Famotidine [Pepcid] 20 mg PO DAILY Loratadine [Claritin] 10 mg PO DAILY 09/10/20 11:25 carvediloL [Coreg] 12.5 mg PO BIDMEALS 09/10/20 11:30 hydrALAZINE [Apresoline] 50 mg PO Q12HR 09/10/20 21:00 Mirtazapine [Remeron] 15 mg PO BEDTIME - Plan Plan:: HPI summary: 69 year old male admitted to observation status with acute kidney injury and dehydration. 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 He is a new resident to [facility] for rehab. correction reported patient had not been eating or drinking well and had decreased urine output. Lab was evaluated at the care home on 09/08/2020 revealing a BUN 70, creatinine 2.65 and GFR 24, patient had previously had normal kidney function. He was transferred to ED via ambulance on the AM of 09/09/2020 for decreased LOC, decreased urine output and hypotension. ED course: -Lab: WBC 8.06, Hgb 12.6 (baseline 12.1), Hct 38.8, Neut 55.7, Na 145, K 3.9, Cl 107, CO2 25, anion gap 16.9, BUN 72, Creatinine 2.49 (baseline 1.06), GFR 26 (baseline 69), lactic acid 2.4, calcium 9.5, troponin <0.017 -EKG: NSR, rate 57, Left axis deviation, no ST changes -CXR: lungs are clear, stable cardiomediastinal contour -VS: on arrival T97.1, P62, R12, O2sat 88%/RA, BP 75/43 on admit: T36.3, P66, R 20, O2 sat 94%/RA, BP 120/55 -NS 1 liter bolus x 1, then NS @ 100mL/hr -Admitted observation status Hospital course: 09/09/2020: Patient sleeping in bed, arouses easily to name. Shakes and nods head appropriate and answers in one to two word sentences. Call placed to [facility] and this is baseline for patient. Pre-existing left sided weakness/paresthesia. Patient was a two-assist pivot transfer upon arrival at [facility], but has changed to need for [place] lift over the past week. 09/10/2020: No overnight concerns. Kidney function is improving and patient is voiding. BUN 50, Creatinine 1.54. Na 148, Cl 112, Ca 8.4. Will decrease NS to 30mL/hr and push fluids. Blood pressure elevation noted with 150s systolic during night and 175/73. Will restart some of patient's antihypertensives (Coreg 12.5mg BID and hydralazine 50mg BID. 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- dominant side, stable #Cerebellar infarction #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
[2020-09-10] MEDS: Carvedilol 12.5 MG Tab PO SCH ×3 (12:44→21:01)
--- NOTE | 2020-09-10 14:26 | CT ---
[id number] CT/CT Head WO IV EXAM: CT Head WO IV CLINICAL DATA: NEUROLOGIC DEFICIT COMPARISON: No previous similar exam is available for comparison. FINDINGS: Extensive disease is seen involving the paranasal sinuses Question is raised if this is inflammatory versus malignant MRI of the brain with without IV contrast is suggested There is no mass or mass effect. There is no hemorrhage or hydrocephalus. There are no extra-axial fluid collections. There are no sites of abnormal attenuation. IMPRESSION: No obvious plain CT evidence of intracranial abnormality Extensive sinus disease Consider further studies Delbert Michael MD 09/10/20 [id number] Thank you for allowing us to participate in the care of your patient.
[2020-09-10] MEDS ORDERED: Mirtazapine 15 MG Tab PO SCH (21:00)
[2020-09-10] MEDS: atorvaSTATin 40 MG Tab PO SCH (21:00)
[2020-09-10] MEDS: hydrALAZINE 50 MG Tab PO SCH (21:01)
[2020-09-11] MEDS: Sodium Chloride 0.9% 1,000 ML IV SCH (02:39)
[2020-09-11 08:26] LABS: CHLORIDE,CL 115 mmol/L (98-107); SODIUM,NA 150 mmol/L (136-145)
[2020-09-11] MEDS: Insulin Aspart 100 Units/ML 3 ML Pen SUBCUT SCH ×2 (09:10→12:08)
[2020-09-11] MEDS: Loratadine 10 MG Tab PO SCH (09:31)
[2020-09-11] MEDS: Aspirin 81 MG Tab.EC PO SCH (09:31)
[2020-09-11] MEDS: Clopidogrel 75 MG Tab PO SCH (09:31)
[2020-09-11] MEDS: Famotidine 20 MG Tab PO SCH (09:31)
[2020-09-11] MEDS: Carvedilol 12.5 MG Tab PO SCH (09:39)
[2020-09-11] MEDS: hydrALAZINE 50 MG Tab PO SCH (09:39)
[2020-09-11] MEDS: Enoxaparin 30 MG/0.3 ML Syringe SUBCUT SCH (09:39)
[2020-09-11] MEDS ORDERED: Lisinopril 20 MG Tab PO SCH (11:00)
--- NOTE | 2020-09-11 11:09 | PCM.DCSUM1 ---
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 # Decreased appetite #Microcytosis #Blindness of right eye, stable #Hemiplegia and hemiparesis following cerebral infarction affecting left non- dominant side, stable #Cerebellar infarction #Dysarthria due to acute cerebrovascular accident #Cognitive deficit S/P CVA (cerebrovascular accident) #Impaired activities of daily living #Impaired gait and mobility #Impaired instrumental activities of daily living (IADL) #Impairment of balance #Coordination impairment Consultations: None Procedures: None Hospital course: HPI summary: 69 year old male admitted to observation status with acute kidney injury and dehydration. 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 He is a new resident to [facility] for rehab. custodial reported patient had not been eating or drinking well and had decreased urine output. [facility] 09/08/2020 revealing a BUN 70, creatinine 2.65 and GFR 24, patient had previously had normal kidney function. He was transferred to ED via ambulance on the AM of 09/09/2020 for decreased LOC, decreased urine output and hypotension. ED course: -Lab: WBC 8.06, Hgb 12.6 (baseline 12.1), Hct 38.8, Neut 55.7, Na 145, K 3.9, Cl 107, CO2 25, anion gap 16.9, BUN 72, Creatinine 2.49 (baseline 1.06), GFR 26 (baseline 69), lactic acid 2.4, calcium 9.5, troponin <0.017 -EKG: NSR, rate 57, Left axis deviation, no ST changes -CXR: lungs are clear, stable cardiomediastinal contour -VS: on arrival T97.1, P62, R12, O2sat 88%/RA, BP 75/43 on admit: T36.3, P66, R 20, O2 sat 94%/RA, BP 120/55 -NS 1 liter bolus x 1, then NS @ 100mL/hr -Admitted observation status Hospital course: 09/09/2020: Patient sleeping in bed, arouses easily to name. Shakes and nods head appropriate and answers in one to two word sentences. Call placed to [facility] and this is baseline for patient. Pre-existing left sided weakness/paresthesia. Patient was a two-assist pivot transfer upon arrival at [facility], but has changed to need for [place] lift over the past week. 09/10/2020: No overnight concerns. Kidney function is improving and patient is voiding. BUN 50, Creatinine 1.54. Na 148, Cl 112, Ca 8.4. Will decrease NS to 30mL/hr and push fluids. Blood pressure elevation noted with 150s systolic during night and 175/73. Will restart some of patient's antihypertensives (Coreg 12.5mg BID and hydralazine 50mg BID. Update: after rounds had discussion with daughter and . Concerns were brought forth regarding the possibility for further CVA. CT head completed revealing no new defect. Blood pressure elevation is noted and Coreg 25mg BID and hydralazine 50mg re-initiated. 09/11/2020: Blood pressure continues to be elevated with maximum reading at 0700 prior to meds of 193/73. Patient given Coreg and hydralazine with improvement noted to 144/61. Care conference with daughter and this AM. Discussed with patient importance of oral intake. Mentioned possibility of feeding tube if unable to keep up with oral intake. Patient declines this at this time. Patient will need continuous monitoring of oral intake at SNF and if refusing intake this conversation may have to be revisited. Patient will be discharged back to SNF today as kidneys have improved (BUN 31, creatinine 1.16, GFR >60). He will need PT/OT for rehab. Discharge and follow-up recommendations: - Discharge to SNF - New medications at discharge: - None - Discontinue HCTZ and metformin for now - Follow-up - Patient has previously scheduled appointment with Marzena De La Cruz PA-c on 09/12/2020. Recommend re-evaluation of how patient does with oral intake on discharge to SNF. If patient is not participating in therapy or declining oral intake may need to revisit possibility of feeding tube or discuss goals of care and rehab. - Recommend rechecking kidney function this week. - Family reports they have a care conference scheduled for 09/13/2020. - Discharge Data Discharge Date: 09/11/20 Discharge Disposition: DC/Tfer to SNF 03 Condition: Fair - Referral to Home Health Primary Care Physician: Addis Perea MD - Patient Instructions Diet: Diabetic Diet Activity: As Tolerated (with assist and lift) Other/Special Instructions: Notify provider if decreased oral intake, decreased responsiveness. - Discharge Plan *PRESCRIPTION DRUG MONITORING PROGRAM REVIEWED*: Not Applicable *COPY OF PRESCRIPTION DRUG MONITORING REPORT IN PATIENT IGNACIA: Not Applicable Home Medications: Home Meds Acetaminophen [Tylenol] 650 mg PO Q4HR PRN 09/09/20 [History] Aspirin [Aspirin EC] 81 mg PO DAILY 09/09/20 [History] Clopidogrel Bisulfate [Clopidogrel] 75 mg PO DAILY 09/09/20 [History] Enoxaparin [Lovenox] 40 mg SUBCUT DAILY 09/09/20 [History] Escitalopram Oxalate 10 mg PO DAILY 09/09/20 [History] Famotidine 20 mg PO BID 09/09/20 [History] Fluticasone Propionate [Flonase] 1 spray NASBOTH BID 09/09/20 [History] Insulin Aspart [Insulin Aspart Flexpen] 6 unit SQ TIDMEALS 09/09/20 [History] Insulin Aspart [Insulin Aspart Flexpen] See Protocol SQ TID PRN 09/09/20 [History] Loratadine 10 mg PO DAILY 09/09/20 [History] Mirtazapine [Remeron] 15 mg PO BEDTIME 09/09/20 [History] Multivit-Min/FA/Lycopen/Lutein [Sentry Senior Tablet] 1 tab PO ACDINNER 09/09/20 [History] Sodium Chloride/Aloe Vera [Parish Saline Nasal Gel [place]] 3 spray NASBOTH Q2H PRN 09/09/20 [History] Sodium Chloride/Aloe Vera [Parish Saline Nasal Gel [place]] 3 spray NASBOTH QID 09/09/20 [History] atorvaSTATin Calcium [Atorvastatin Calcium] 80 mg PO BEDTIME 09/09/20 [History] carvediloL [Carvedilol] 25 mg PO BID 09/09/20 [History] guaiFENesin [Guaifenesin ER] 600 mg PO Q12HR 09/09/20 [History] hydrALAZINE HCl [Hydralazine HCl] 50 mg PO TID 09/09/20 [History] lisinopriL [Lisinopril] 20 mg PO BID 09/09/20 [History] Referrals: Addis Perea MD [Primary Care Provider] - (Follow up for previously scheduled appt with Marzena De La Cruz on 09/12/2020) - Discharge Summary/Plan Comment DC Time >30 min.: Yes - General Info Date of Service: 09/11/20 Subjective Update: Patient reports no pain or other concerns. Functional Status: Reports: Pain Controlled, Tolerating Diet, Urinating. Denies: Ambulating - Review of Systems General: Reports: Weakness, Appetite (decreased). Denies: Fatigue HEENT: Reports: Dysphasia (pre-existing), Sinus Congestion. Denies: Headaches, Sore Throat Pulmonary: Denies: Shortness of Breath, Cough, Sputum Cardiovascular: Denies: Chest Pain, Palpitations, Edema Gastrointestinal: Reports: Decreased Appetite. Denies: Abdominal Pain, Dorie rrhea, Nausea, Vomiting Genitourinary: Reports: Incontinence. Denies: Dysuria, Hematuria Musculoskeletal: Denies: Neck Pain, Back Pain, Leg Pain Skin: Denies: Jaundice, Bruising, Rash Neurological: Reports: Paresthesia (pre-existing left sided), Trouble Speaking (two to three word sentences). Denies: Confusion, Headache, Change in Speech Psychiatric: Reports: Depression. Denies: Confusion, Anxiety - Patient Data Vitals - Most Recent: Last Vital Signs Temp 37.1 C 09/11/20 07:00 Pulse 63 09/11/20 09:39 Resp 16 09/11/20 07:00 BP 144/61 H 09/11/20 09:39 Pulse Ox 95 09/11/20 07:00 Weight - Most Recent: 78.562 kg I&O - Last 24 hours: Intake & Output 09/10/20 09/11/20 09/11/20 22:59 06:59 14:59 Intake Total 274 200 Balance 274 200 Lab Results - Last 24 hrs: Laboratory Results - last 24 hr 09/10/20 09/10/20 09/10/20 Range/Units 11:53 17:20 20:55 WBC (5.00-10.00) 10^3/uL RBC (4.50-6.00) 10^6/uL Hgb (13.0-17.0) g/dL Hct (40.0-52.0) % MCV (82.0-92.0) fL MCH (27.0-31.0) pg MCHC (32.0-36.0) g/dL RDW (11.5-14.5) % Plt Count (150-400) 10^3/uL MPV (7.4-10.4) fL Immature Gran % (Auto) (0.0-5.0) % Neut % (Auto) (50.0-70.0) % Lymph % (Auto) (20.0-40.0) % [place] % (Auto) (2.0-8.0) % Eos % (Auto) (1.0-3.0) % Baso % (Auto) (0.0-1.0) % Neut # (Auto) (2.50-7.00) 10^3/uL Lymph # (Auto) (1.00-4.00) 10^3/uL [place] # (Auto) (0.10-0.80) 10^3/uL Eos # (Auto) (0.10-0.30) 10^3/uL Baso # (Auto) (0.00-0.10) 10^3/uL Immature Gran # (Auto) (0.00-0.50) 10^3/uL Sodium (136-145) mmol/L Potassium (3.5-5.1) mmol/L Chloride (98-107) mmol/L Carbon Dioxide (21.0-32.0) mmol/L Anion Gap (5-15) mmol/L BUN (7-18) mg/dL Creatinine (0.51-1.17) mg/dL Est Cr Clr Drug Dosing mL/min Estimated GFR (MDRD) mL/min Glucose (70-140) mg/dL POC Glucose 124 H 121 H 174 H (74-106) mg/dl Calcium (8.7-10.3) mg/dL 09/11/20 09/11/20 09/11/20 Range/Units 07:35 07:35 07:54 WBC 4.86 L (5.00-10.00) 10^3/uL RBC 4.23 L (4.50-6.00) 10^6/uL Hgb 11.3 L (13.0-17.0) g/dL Hct 35.1 L (40.0-52.0) % MCV 83.0 (82.0-92.0) fL MCH 26.7 L (27.0-31.0) pg MCHC 32.2 (32.0-36.0) g/dL RDW 14.6 H (11.5-14.5) % Plt Count 162 (150-400) 10^3/uL MPV 9.8 (7.4-10.4) fL Immature Gran % (Auto) 0.4 (0.0-5.0) % Neut % (Auto) 42.0 L (50.0-70.0) % Lymph % (Auto) 29.8 (20.0-40.0) % [place] % (Auto) 12.8 H (2.0-8.0) % Eos % (Auto) 13.8 H (1.0-3.0) % Baso % (Auto) 1.2 H (0.0-1.0) % Neut # (Auto) 2.04 L (2.50-7.00) 10^3/uL Lymph # (Auto) 1.45 (1.00-4.00) 10^3/uL [place] # (Auto) 0.62 (0.10-0.80) 10^3/uL Eos # (Auto) 0.67 H (0.10-0.30) 10^3/uL Baso # (Auto) 0.06 (0.00-0.10) 10^3/uL Immature Gran # (Auto) 0.02 (0.00-0.50) 10^3/uL Sodium 150 H (136-145) mmol/L Potassium 3.6 (3.5-5.1) mmol/L Chloride 115 H (98-107) mmol/L Carbon Dioxide 23.6 (21.0-32.0) mmol/L Anion Gap 15.0 (5-15) mmol/L BUN 31 H (7-18) mg/dL Creatinine 1.16 (0.51-1.17) mg/dL Est Cr Clr Drug Dosing 61.18 mL/min Estimated GFR (MDRD) > 60 mL/min Glucose 162 H (70-140) mg/dL POC Glucose 136 H (74-106) mg/dl Calcium 8.9 (8.7-10.3) mg/dL Med Orders - Current: Current Medications Acetaminophen (Tylenol) 650 mg PO Q4HR PRN PRN Reason: Pain Aspirin (Halfprin) 81 mg PO DAILY [facility] Last Admin: 09/11/20 09:31 Dose: 81 mg Documented by: Atorvastatin Calcium (Lipitor) 80 mg PO BEDTIME [facility] Last Admin: 09/10/20 21:00 Dose: 80 mg Documented by: Carvedilol (Coreg) 25 mg PO BID [facility] Last Admin: 09/11/20 09:39 Dose: 25 mg Documented by: Clopidogrel Bisulfate (Plavix) 75 mg PO DAILY [facility] Last Admin: 09/11/20 09:31 Dose: 75 mg Documented by: Dextrose/Water (Dextrose 50% In Water) 50 ml IV ASDIRECTED PRN PRN Reason: Hypoglycemia Enoxaparin Sodium (Lovenox) 30 mg SUBCUT DAILY [facility] Last Admin: 09/11/20 09:39 Dose: 30 mg Documented by: Famotidine (Pepcid) 20 mg PO DAILY [facility] Last Admin: 09/11/20 09:31 Dose: 20 mg Documented by: Glucagon (Glucagen) 1 mg IM ASDIRECTED PRN PRN Reason: Hypoglycemia Hydralazine HCl (Apresoline) 50 mg PO TID [facility] Last Admin: 09/11/20 09:39 Dose: 50 mg Documented by: Insulin Aspart (Novolog) 0 unit SUBCUT WITHMEALSANDBED [facility]; Protocol Last Admin: 09/11/20 09:10 Dose: Not Given Documented by: Lisinopril (Prinivil) 20 mg PO BID [facility] Loratadine (Claritin) 10 mg PO DAILY [facility] Last Admin: 09/11/20 09:31 Dose: 10 mg Documented by: Mirtazapine (Remeron) 15 mg PO BEDTIME [facility] Last Admin: 09/10/20 21:00 Dose: 15 mg Documented by: Sodium Chloride (Saline Flush) 10 ml FLUSH Q8HR PRN PRN Reason: keep vein open Discontinued Medications Carvedilol (Coreg) 12.5 mg PO BIDMEALS [facility] Last Admin: 09/10/20 17:32 Dose: 12.5 mg Documented by: Hydralazine HCl (Apresoline) 50 mg PO BID [facility] Last Admin: 09/10/20 12:43 Dose: 50 mg Documented by: Sodium Chloride (Normal Saline) 1,000 mls @ 999 mls/hr IV .BOLUS ONE Stop: 09/09/20 12:47 Last Admin: 09/09/20 11:45 Dose: 999 mls/hr Documented by: Sodium Chloride (Normal Saline) 1,000 mls @ 30 mls/hr IV ASDIRECTED [facility] Last Admin: 09/11/20 02:39 Dose: 30 mls/hr Documented by: Sodium Chloride (Saline Flush) 10 ml FLUSH Q8HR PRN PRN Reason: keep vein open - Exam Physical Findings Comments:: GENERAL: Well-appearing adult in no acute distress. Sitting up in chair, present. HEENT: Normocephalic, atraumatic. Conjunctiva clear. Nares patent without discharge. Mucous membranes moist, posterior pharynx unremarkable. NECK: Supple, no masses. CV: Regular rate and rhythm, 3/6 systolic murmur, no rubs or gallops. 2+ radial pulses. PULMONARY: Normal effort, fine crackles to bilateral bases, no wheezes, rales, or rhonchi. ABDOMEN: Positive bowel sounds, soft, nontender, nondistended. EXTREMITIES: No edema, cyanosis, or clubbing. 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 NEUROLOGICAL: Alert. Answers questions. Follows commands. Pre-existing left sided weakness DERMATOLOGIC: No rashes or suspicious lesions in exposed areas. PSYCHIATRIC: Alert, appropriate affect.
== END 2020-09-11 12:50 ==
LOC: KA.ED 11:32 → KA.MS 13:13 → UNDOADMOB 13:45 → KA.MS 13:45
PROVIDERS: ADMIT Nurse Practitioner Family; ATTEND Family Medicine
DX: E86.0 Dehydration (principal); N17.9 Acute kidney failure, unspecified; R53.1 Weakness; I10 Essential (primary) hypertension; E11.9 Type 2 diabetes mellitus without complications; I69.354 Hemiplegia and hemiparesis following cerebral infarction affecting left non-dominant side; I69.322 Dysarthria following cerebral infarction; I69.319 Unspecified symptoms and signs involving cognitive functions following cerebral infarction; R26.9 Unspecified abnormalities of gait and mobility; R27.8 Other lack of coordination; R63.0 Anorexia; R39.12 Poor urinary stream; R71.8 Other abnormality of red blood cells; R74.02 Elevation of levels of lactic acid dehydrogenase [LDH]; H54.40 Blindness, one eye, unspecified eye; Z20.822 Contact with and (suspected) exposure to COVID-19; Z79.82 Long term (current) use of aspirin; Z79.84 Long term (current) use of oral hypoglycemic drugs; Z79.899 Other long term (current) drug therapy; Z87.891 Personal history of nicotine dependence; Z98.890 Other specified postprocedural states
CPT/HCPCS: 36415; 70450; 71045; 80048; 82962; 83605; 83880; 84484; 85025; 86140; 93005; 96372; 99283; 99285-25; A9270-GY; G0378; J1650; J1815-GY; J7030; U0002

== ENCOUNTER 2020-10-19 23:18 | Inpatient (IN) | payer MEDICARE, OTHER ==
[2020-10-19] MEDS ORDERED: Sodium Chloride 0.9% 10 ML Syringe FLUSH PRN (23:34)
[2020-10-19] MEDS ORDERED: cefTRIAXone 2 GM Vial IVPUSH ONE (23:36)
[2020-10-19] MEDS ORDERED: Nitroglycerin 0.4 MG Tab.SL SL ONE (23:40)
--- NOTE | 2020-10-20 00:03 | EDM.PDOC ---
ED HPI GENERAL MEDICAL PROBLEM - General Chief Complaint: General Stated Complaint: DYSPNEA Time Seen by Provider: 10/19/20 23:18 Source of Information: Reports: Patient, EMS, Fdc Records History Limitations: Reports: No Limitations - History of Present Illness INITIAL COMMENTS - FREE TEXT/NARRATIVE: 69 YO WM PRESENTS TO ER FROM [place] BY EMS WITH COMPLAINTS OF SHORTNESS OF BREATH AND LEFT SIDED CHEST PAIN. PT REPORTS HE DEVELOPED SUDDEN ONSET CHEST PAIN WITH ASSOCIATED SHORTNESS OF BREATH AND DIAPHORESIS. EMS WAS CALLED AND INITIAL SAO2 WAS IN THE 80S. PT WAS PLACED ON A NONREBREATHER AND GIVEN NITRO SL X 2. UPON ARRIVAL TO ER SAO2=96% ON 10L. PT REPORTS HIS BREATHING AND CHEST PAIN HAS IMPROVED. PER EMS PT WAS POSITIVE FOR COVID 2 WEEKS AGO. PT WAS TESTED TODAY AND RAPID COVID SWAB WAS NEGATIVE PER [place]. PT DENIES ABDOMINAL PAIN, NAUSEA/VOMITING OR DIZZINESS. 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 Onset: Today Onset Date: 10/20/20 Location: Reports: Chest Quality: Reports: Ache Severity: Moderate Improves with: Reports: Medication, Other (OXYGEN) Worsens with: Reports: None Associated Symptoms: Reports: Chest Pain, Diaphoresis, Shortness of Breath. 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, Oxygen Chest Pain Score (Numeric/FACES): 8 - Related Data Allergies Allergy/AdvReac Type Severity Reaction Status Date / Time No Known Allergies Allergy Verified 10/20/20 01:35 Home Meds: Home Meds Acetaminophen [Tylenol] 650 mg PO Q4HR PRN 09/09/20 [History] Aspirin [Aspirin EC] 81 mg PO DAILY 09/09/20 [History] Clopidogrel Bisulfate [Clopidogrel] 75 mg PO DAILY 09/09/20 [History] Escitalopram Oxalate 10 mg PO DAILY 09/09/20 [History] Famotidine 20 mg PO BID 09/09/20 [History] Fluticasone Propionate [Flonase] 1 spray NASBOTH BID 09/09/20 [History] Insulin Aspart [Insulin Aspart Flexpen] 6 unit SQ TIDMEALS 09/09/20 [History] Insulin Aspart [Insulin Aspart Flexpen] See Protocol SQ TID PRN 09/09/20 [History] Loratadine 10 mg PO DAILY 09/09/20 [History] Mirtazapine [Remeron] 15 mg PO BEDTIME 09/09/20 [History] Multivit-Min/FA/Lycopen/Lutein [[employer] Senior Tablet] 1 tab PO ACDINNER 09/09/20 [History] atorvaSTATin Calcium [Atorvastatin Calcium] 80 mg PO BEDTIME 09/09/20 [History] carvediloL [Carvedilol] 25 mg PO BID 09/09/20 [History] guaiFENesin [Guaifenesin ER] 600 mg PO Q12HR 09/09/20 [History] hydrALAZINE HCl [Hydralazine HCl] 50 mg PO TID 09/09/20 [History] lisinopriL [Lisinopril] 20 mg PO BID 09/09/20 [History] Acetaminophen 650 mg PO TID 10/20/20 [History] Insulin Glarg,Human.Rec.Analog [Lantus Solostar] 17 unit SUBCUT DAILY 10/20/20 [History] Sodium Chloride/Aloe Vera [[place] Saline Nasal Gel [place]] 3 sprays NASBOTH Q2H PRN 10/20/20 [History] Sodium Chloride/Aloe Vera [[place] Saline Nasal Gel [place]] 3 sprays NASBOTH QID 10/20/20 [History] Past Medical History HEENT History: Reports: Impaired Vision Cardiovascular History: Reports: Hypertension Neurological History: Reports: CVA, Speech Problems Endocrine/Metabolic History: Reports: Diabetes, Type II - Past Surgical History HEENT Surgical History: Reports: Cataract Surgery Social & Family History - Family History Family Medical History: Unobtainable - Caffeine Use Caffeine Use: Reports: Other Other Caffeine Use: unable to obtain information from patient ED ROS GENERAL - Review of Systems Review Of Systems: See Below Constitutional: Reports: No Symptoms HEENT: Reports: No Symptoms Respiratory: Reports: Shortness of Breath. Denies: Cough, Sputum Cardiovascular: Reports: Chest Pain, Dyspnea on Exertion Endocrine: Reports: No Symptoms GI/Abdominal: Reports: No Symptoms : Reports: No Symptoms Musculoskeletal: Reports: No Symptoms Skin: Reports: No Symptoms Neurological: Reports: Pre-Existing Deficit Psychiatric: Reports: No Symptoms Hematologic/Lymphatic: Reports: No Symptoms Immunologic: Reports: No Symptoms ED EXAM, GENERAL - Physical Exam Exam: See Below Exam Limited By: No Limitations General Appearance: Alert, WD/WN, No Apparent Distress Eye Exam: Bilateral Eye: PERRL Head: Atraumatic, Normocephalic Neck: Normal Inspection, Supple, Non-Tender, Full Range of Motion Respiratory/Chest: Decreased Breath Sounds, Accessory Muscle Use Cardiovascular: Normal Peripheral Pulses, Regular Rate, Rhythm, No Edema, No Gallop, No JVD, No Murmur, No Rub GI/Abdominal: Normal Bowel Sounds, Soft, Non-Tender, No Organomegaly, No Distention, No Abnormal Bruit, No Mass Neurological: Alert, Oriented, CN II-XII Intact, Normal Cognition Psychiatric: Normal Affect, Normal Mood Skin Exam: Warm, Dry, Intact, Normal Color, No Rash Lymphatic: No Adenopathy #1 Interpretation EKG Date: 10/20/20 Time: 23:20 Rhythm: NSR Rate (Beats/Min): 88 [place]: LAD-Left [place] Deviation P-Wave: Present QRS: LBBB ST-T: Normal QT: Normal Comparison: No Change (08/07/2019) Course - Vital Signs Last Recorded V/S: Last Vital Signs Temp 97.7 F 10/19/20 23:21 Pulse 70 10/20/20 03:15 Resp 18 10/20/20 03:15 BP 131/71 10/20/20 03:15 Pulse Ox 97 10/20/20 03:15 - Orders/Labs/Meds Orders: Active Orders 24 hr Category Date Time Status Patient Status Manage Transfer [TRANSFER] Routine ADT 10/20/20 03:17 Active Patient Status [ADT] Routine ADT 10/20/20 03:19 Active Cardiac Monitoring [RC] CONTINUOUS Care 10/19/20 23:35 Active Cardiac Monitoring [RC] CONTINUOUS Care 10/20/20 03:20 Active EKG Documentation Completion [RC] ASDIRECTED Care 10/19/20 23:34 Active Oxygen Therapy [RC] PRN Care 10/20/20 03:19 Active Oxygen Therapy, ED [RC] STAT Care 10/19/20 23:35 Active Up With Assistance [RC] ASDIRECTED Care 10/20/20 03:19 Active VTE/DVT Education [RC] PER UNIT ROUTINE Care 10/20/20 03:19 Active Vital Signs [RC] Q4H Care 10/20/20 03:19 Active [employer] Diet [DIET] Diet 10/20/20 Breakfast Active Chest 1V Frontal [CR] Stat Exams 10/19/20 23:34 Ordered Chest w Cont [CT] Stat Exams 10/20/20 01:42 Ordered CRP [C-REACTIVE PROTEIN] [CHEM] AM Lab 10/20/20 05:11 Ordered TROPONIN I [CHEM] AM Lab 10/20/20 05:11 Ordered Sodium Chloride 0.9% [Normal Saline] 100 ml Med 10/20/20 02:15 Active IV ASDIRECTED Sodium Chloride 0.9% [Saline Flush] Med 10/19/20 23:34 Active 10 ml FLUSH Q8HR PRN Blood Culture x2 Reflex Set [OM.PC] Stat Oth 10/19/20 23:34 Ordered Saline Lock Insert [OM.PC] Stat Oth 10/19/20 23:34 Ordered Severe Sepsis Onset Time [OM.PC] Stat Oth 10/19/20 23:34 Ordered Resuscitation Status Routine Resus Stat 10/20/20 03:19 Ordered EKG 12 Lead [EK] Stat Ther 10/19/20 23:34 Ordered Medication Orders Sodium Chloride (Normal Saline) 100 mls @ 200 mls/hr IV ASDIRECTED [facility] Last Admin: 10/20/20 03:16 Dose: 200 mls/hr Documented by: ALEXANDER Sodium Chloride (Sodium Chloride 0.9% 10 Ml Syringe) 10 ml FLUSH Q8HR PRN PRN Reason: keep vein open Last Admin: 10/19/20 23:43 Dose: 10 ml Documented by: VANI Labs: Laboratory Tests 10/19/20 10/19/20 10/19/20 Range/Units 00:23 23:30 23:30 WBC 8.20 (5.00-10.00) 10^3/uL RBC 3.60 L (4.50-6.00) 10^6/uL Hgb 10.3 L (13.0-17.0) g/dL Hct 30.8 L (40.0-52.0) % MCV 85.6 (82.0-92.0) fL MCH 28.6 (27.0-31.0) pg MCHC 33.4 (32.0-36.0) g/dL RDW 15.8 H (11.5-14.5) % Plt Count 227 (150-400) 10^3/uL MPV 10.2 (7.4-10.4) fL Add Manual Diff Yes Neutrophils % (Manual) 39 L (50-70) % Band Neutrophils % 2 L (4-12) % Lymphocytes % (Manual) 34 (20-40) % Monocytes % (Manual) 8 (2-8) % Eosinophils % (Manual) 17 H (1-3) % Absolute Neutrophils 3.3620 Lymphocytes # (Manual) 2.7880 Monocytes # (Manual) 0.6560 Eosinophils # (Manual) 1.3940 PT 10.2 (9.2-11.2) SEC INR 1.0 (0.9-1.1) APTT 25.6 (22.8-31.4) SEC Sodium (136-145) mmol/L Potassium (3.5-5.1) mmol/L Chloride (98-107) mmol/L Carbon Dioxide (21.0-32.0) mmol/L Anion Gap (5-15) mmol/L BUN (7-18) mg/dL Creatinine (0.51-1.17) mg/dL Est Cr Clr Drug Dosing Estimated GFR (MDRD) mL/min Glucose (70-140) mg/dL Lactic Acid 1.1 (0.4-2.0) mmol/L Calcium (8.7-10.3) mg/dL Total Bilirubin (0.2-1.0) mg/dL AST (15-37) U/L ALT (14-63) U/L Alkaline Phosphatase (46-116) U/L Troponin I (0.000-0.056) ng/mL B-Natriuretic Peptide (0-100) pg/mL Total Protein (6.4-8.2) g/dL Albumin (3.40-5.00) g/dL Specimen Type Urine Color (YELLOW) Urine Appearance (CLEAR) Urine pH (5.0-9.0) Ur Specific [place] (1.005-1.030) Urine Protein (NEGATIVE) mg/dL Urine Glucose (UA) (NEGATIVE) mg/dL Urine Ketones (NEGATIVE) mg/dL Urine Occult Blood (NEGATIVE) Urine Nitrite (NEGATIVE) Urine Bilirubin (NEGATIVE) Urine Urobilinogen (0.2-1.0) E.U./dL Ur Leukocyte Esterase (NEGATIVE) Urine RBC (0-5) /HPF Urine WBC (0-5) /HPF Ur Epithelial Cells /LPF Amorphous Sediment (0/HPF) /HPF Urine Bacteria (NONE TO FEW) /HPF Urine Mucus (NEGATIVE) /LPF SARS CoV-2 RNA Rapid RICHARD (NEGATIVE) 10/19/20 10/19/20 10/19/20 Range/Units 23:30 23:33 23:34 WBC (5.00-10.00) 10^3/uL RBC (4.50-6.00) 10^6/uL Hgb (13.0-17.0) g/dL Hct (40.0-52.0) % MCV (82.0-92.0) fL MCH (27.0-31.0) pg MCHC (32.0-36.0) g/dL RDW (11.5-14.5) % Plt Count (150-400) 10^3/uL MPV (7.4-10.4) fL Add Manual Diff Neutrophils % (Manual) (50-70) % Band Neutrophils % (4-12) % Lymphocytes % (Manual) (20-40) % Monocytes % (Manual) (2-8) % Eosinophils % (Manual) (1-3) % Absolute Neutrophils Lymphocytes # (Manual) Monocytes # (Manual) Eosinophils # (Manual) PT (9.2-11.2) SEC INR (0.9-1.1) APTT (22.8-31.4) SEC Sodium 139 D (136-145) mmol/L Potassium 3.4 L (3.5-5.1) mmol/L Chloride 105 (98-107) mmol/L Carbon Dioxide 20.8 L (21.0-32.0) mmol/L Anion Gap 16.6 H (5-15) mmol/L BUN 15 (7-18) mg/dL Creatinine 0.93 (0.51-1.17) mg/dL Est Cr Clr Drug Dosing TNP Estimated GFR (MDRD) > 60 mL/min Glucose 197 H (70-140) mg/dL Lactic Acid (0.4-2.0) mmol/L Calcium 8.1 L (8.7-10.3) mg/dL Total Bilirubin 0.6 (0.2-1.0) mg/dL AST 22 (15-37) U/L ALT 19 (14-63) U/L Alkaline Phosphatase 66 (46-116) U/L Troponin I 0.022 (0.000-0.056) ng/mL B-Natriuretic Peptide 269 H (0-100) pg/mL Total Protein 5.8 L (6.4-8.2) g/dL Albumin 2.47 L (3.40-5.00) g/dL Specimen Type Urinvoid Urine Color Yellow (YELLOW) Urine Appearance Clear (CLEAR) Urine pH 5.5 (5.0-9.0) Ur Specific [place] >= 1.030 (1.005-1.030) Urine Protein 100 H (NEGATIVE) mg/dL Urine Glucose (UA) Negative (NEGATIVE) mg/dL Urine Ketones Negative (NEGATIVE) mg/dL Urine Occult Blood Trace-intact H (NEGATIVE) Urine Nitrite Negative (NEGATIVE) Urine Bilirubin Negative (NEGATIVE) Urine Urobilinogen 0.2 (0.2-1.0) E.U./dL Ur Leukocyte Esterase Trace H (NEGATIVE) Urine RBC 10-20 H (0-5) /HPF Urine WBC 5-10 H (0-5) /HPF Ur Epithelial Cells Rare /LPF Amorphous Sediment Moderate H (0/HPF) /HPF Urine Bacteria Not seen (NONE TO FEW) /HPF Urine Mucus Few H (NEGATIVE) /LPF SARS CoV-2 RNA Rapid RICHARD (NEGATIVE) 10/19/20 Range/Units 23:36 WBC (5.00-10.00) 10^3/uL RBC (4.50-6.00) 10^6/uL Hgb (13.0-17.0) g/dL Hct (40.0-52.0) % MCV (82.0-92.0) fL MCH (27.0-31.0) pg MCHC (32.0-36.0) g/dL RDW (11.5-14.5) % Plt Count (150-400) 10^3/uL MPV (7.4-10.4) fL Add Manual Diff Neutrophils % (Manual) (50-70) % Band Neutrophils % (4-12) % Lymphocytes % (Manual) (20-40) % Monocytes % (Manual) (2-8) % Eosinophils % (Manual) (1-3) % Absolute Neutrophils Lymphocytes # (Manual) Monocytes # (Manual) Eosinophils # (Manual) PT (9.2-11.2) SEC INR (0.9-1.1) APTT (22.8-31.4) SEC Sodium (136-145) mmol/L Potassium (3.5-5.1) mmol/L Chloride (98-107) mmol/L Carbon Dioxide (21.0-32.0) mmol/L Anion Gap (5-15) mmol/L BUN (7-18) mg/dL Creatinine (0.51-1.17) mg/dL Est Cr Clr Drug Dosing Estimated GFR (MDRD) mL/min Glucose (70-140) mg/dL Lactic Acid (0.4-2.0) mmol/L Calcium (8.7-10.3) mg/dL Total Bilirubin (0.2-1.0) mg/dL AST (15-37) U/L ALT (14-63) U/L Alkaline Phosphatase (46-116) U/L Troponin I (0.000-0.056) ng/mL B-Natriuretic Peptide (0-100) pg/mL Total Protein (6.4-8.2) g/dL Albumin (3.40-5.00) g/dL Specimen Type Urine Color (YELLOW) Urine Appearance (CLEAR) Urine pH (5.0-9.0) Ur Specific [place] (1.005-1.030) Urine Protein (NEGATIVE) mg/dL Urine Glucose (UA) (NEGATIVE) mg/dL Urine Ketones (NEGATIVE) mg/dL Urine Occult Blood (NEGATIVE) Urine Nitrite (NEGATIVE) Urine Bilirubin (NEGATIVE) Urine Urobilinogen (0.2-1.0) E.U./dL Ur Leukocyte Esterase (NEGATIVE) Urine RBC (0-5) /HPF Urine WBC (0-5) /HPF Ur Epithelial Cells /LPF Amorphous Sediment (0/HPF) /HPF Urine Bacteria (NONE TO FEW) /HPF Urine Mucus (NEGATIVE) /LPF SARS CoV-2 RNA Rapid RICHARD Negative (NEGATIVE) Meds: Medications Generic Name Dose Route Start Last Admin Trade Name Freq PRN Reason Stop Dose Admin Sodium Chloride 100 mls @ 200 mls/hr 10/20/20 02:15 10/20/20 03:16 Normal Saline IV 200 mls/hr ASDIRECTED HILDA Administration Sodium Chloride 10 ml 10/19/20 23:34 10/19/20 23:43 Sodium Chloride 0.9% 10 Ml Syringe FLUSH 10 ml Q8HR PRN Administration keep vein open Discontinued Medications Generic Name Dose Route Start Last Admin Trade Name Freq PRN Reason Stop Dose Admin Ceftriaxone Sodium 2 gm 10/19/20 23:36 10/19/20 23:43 Ceftriaxone 2 Gm Vial IVPUSH 10/19/20 23:37 2 gm ONETIME ONE Administration Iopamidol 75 ml 10/20/20 02:01 10/20/20 03:16 Iopamidol 755 Mg/Ml 75 Ml Bottle IVPUSH 10/20/20 02:02 75 ml ONETIME ONE Administration Nitroglycerin 0.4 mg 10/19/20 23:40 10/19/20 23:23 Nitroglycerin 0.4 Mg Tab.Sl SL 10/19/20 23:41 0.4 mg ONETIME ONE Administration - Radiology Interpretation Free Text/Narrative:: CXR- PNEUMONIA VS PULMONARY EDEMA Departure - Departure Time of Disposition: 03:22 Disposition: Admitted As Inpatient 65 Condition: Poor Clinical Impression: CHF, Congestive heart failure, Hypoxemia - Discharge Information Referrals: Addis Perea MD [Primary Care Provider] - Forms: ED Department Discharge Sepsis Event Note (ED) - Focused Exam Vital Signs: Vital Signs Temp Pulse Resp BP BP Pulse Ox Pulse Ox 10/20/20 03:15 70 18 131/71 97 10/20/20 03:01 72 19 144/72 H 98 10/20/20 02:46 74 13 158/66 H 98 10/20/20 02:16 63 16 177/77 H 99 10/20/20 02:01 71 18 169/79 H 98 10/20/20 01:45 65 20 126/69 98 10/20/20 01:31 69 21 H 137/68 98 10/20/20 01:15 74 21 H 146/74 H 97 10/20/20 01:01 72 20 148/74 H 99 10/20/20 00:45 72 23 H 162/84 H 99 10/20/20 00:30 77 25 H 166/84 H 98 10/20/20 00:00 80 162/80 H 98 10/19/20 23:46 84 159/80 H 97 10/19/20 23:35 94 L 10/19/20 23:30 84 155/85 H 94 L 10/19/20 23:23 164/90 H 10/19/20 23:21 97.7 F 94 24 H 164/90 H 91 L - My Orders Last 24 Hours: My Active Orders 10/19/20 23:34 EKG Documentation Completion [RC] ASDIRECTED Chest 1V Frontal [CR] Stat Sodium Chloride 0.9% [Saline Flush] 10 ml FLUSH Q8HR PRN Blood Culture x2 Reflex Set [OM.PC] Stat Saline Lock Insert [OM.PC] Stat Severe Sepsis Onset Time [OM.PC] Stat EKG 12 Lead [EK] Stat 10/19/20 23:35 Cardiac Monitoring [RC] CONTINUOUS Oxygen Therapy, ED [RC] STAT 10/20/20 01:42 Chest w Cont [CT] Stat 10/20/20 02:15 Sodium Chloride 0.9% [Normal Saline] 100 ml IV ASDIRECTED 10/20/20 03:17 Patient Status Manage Transfer [TRANSFER] Routine 10/20/20 03:19 Patient Status [ADT] Routine Oxygen Therapy [RC] PRN Up With Assistance [RC] ASDIRECTED VTE/DVT Education [RC] PER UNIT ROUTINE Vital Signs [RC] Q4H Resuscitation Status Routine 10/20/20 03:20 Cardiac Monitoring [RC] CONTINUOUS 10/20/20 05:11 CRP [C-REACTIVE PROTEIN] [CHEM] AM TROPONIN I [CHEM] AM 10/20/20 Breakfast [employer] Diet [DIET] - Assessment/Plan Last 24 Hours: My Active Orders 10/19/20 23:34 EKG Documentation Completion [RC] ASDIRECTED Chest 1V Frontal [CR] Stat Sodium Chloride 0.9% [Saline Flush] 10 ml FLUSH Q8HR PRN Blood Culture x2 Reflex Set [OM.PC] Stat Saline Lock Insert [OM.PC] Stat Severe Sepsis Onset Time [OM.PC] Stat EKG 12 Lead [EK] Stat 10/19/20 23:35 Cardiac Monitoring [RC] CONTINUOUS Oxygen Therapy, ED [RC] STAT 10/20/20 01:42 Chest w Cont [CT] Stat 10/20/20 02:15 Sodium Chloride 0.9% [Normal Saline] 100 ml IV ASDIRECTED 10/20/20 03:17 Patient Status Manage Transfer [TRANSFER] Routine 10/20/20 03:19 Patient Status [ADT] Routine Oxygen Therapy [RC] PRN Up With Assistance [RC] ASDIRECTED VTE/DVT Education [RC] PER UNIT ROUTINE Vital Signs [RC] Q4H Resuscitation Status Routine 10/20/20 03:20 Cardiac Monitoring [RC] CONTINUOUS 10/20/20 05:11 CRP [C-REACTIVE PROTEIN] [CHEM] AM TROPONIN I [CHEM] AM 10/20/20 Breakfast [employer] Diet [DIET] Assessment:: 1. PULMONARY EDEMA 2. HYPOEMIA Plan: 1. ADMIT TO MEDICINE- DR DAVE COREAS 2. SUPPLEMENTAL O2 3. REPEAT TROP I IN AM 4. SUPPORTIVE CARE
[2020-10-20 00:11] LABS: ANION GAP 16.6 mmol/L (5-15); CHLORIDE,CL 105 mmol/L (98-107); SODIUM,NA 139 mmol/L (136-145)
[2020-10-20 00:16] LABS: PTT,PARTIAL THROMBOPLSTIN TIME 25.6 SEC (22.8-31.4)
[2020-10-20] MEDS ORDERED: Iopamidol 755 Mg/ML 75 ML Bottle IVPUSH ONE (02:01)
[2020-10-20] MEDS ORDERED: Sodium Chloride 0.9% 100 ML IV SCH (02:15)
[2020-10-20] MEDS ORDERED: [UNRECOGNIZED DRUG - OTHER] NASBOTH PRN (07:42)
[2020-10-20] MEDS ORDERED: SODIUM CHLORIDE NASBOTH PRN (07:42)
[2020-10-20] MEDS ORDERED: Glucagon,Human Recombinant 1 MG Vial IM PRN ×2 (07:42→07:45)
[2020-10-20] MEDS ORDERED: ALOE VERA NASBOTH PRN (07:42)
[2020-10-20] MEDS ORDERED: 50% Dextrose in Water 50 ML Syringe IV PRN ×2 (07:42→07:45)
[2020-10-20] MEDS ORDERED: Acetaminophen 325 MG Tab PO PRN (07:42)
[2020-10-20] MEDS: Insulin Aspart 100 Units/ML 3 ML Pen SUBCUT SCH ×2 (08:14→13:08)
[2020-10-20 08:38] LABS: ANION GAP 17.3 mmol/L (5-15); CHLORIDE,CL 107 mmol/L (98-107); SODIUM,NA 141 mmol/L (136-145)
[2020-10-20] MEDS ORDERED: Aspirin 81 MG Tab.Chew PO ONE (08:42)
[2020-10-20] MEDS ORDERED: Aspirin 81 MG Tab.Chew ONE (08:44)
--- NOTE | 2020-10-20 08:59 | CT ---
[id number] CT/CT Chest W IV EXAM: CT Chest W IV CLINICAL DATA: SHORTNESS OF BREATH COMPARISON: None. FINDINGS: LUNGS: Extensive groundglass density seen throughout the lungs bilaterally. Small to moderate bilateral pleural effusions. No pneumothorax. Interlobular septal thickening. No endobronchial lesions. HEART AND GREAT VESSELS: The heart is enlarged. Coronary artery disease. Aortic valvular calcifications. MEDIASTINUM AND LYMPHATICS: Stable enlarged mediastinal lymph nodes some of which demonstrate calcification. For example there is a partially calcified right paratracheal lymph node measuring 2.3 cm in short axis. Findings are likely related to prior granulomatous disease. UPPER ABDOMINAL ORGANS: The visualized upper abdominal organs are grossly unremarkable. BONES: Scattered changes of spondylosis in the spine. No fracture or osseous lesion. IMPRESSION: 1. Diffuse groundglass density seen throughout the lungs in conjunction with small to moderate bilateral pleural effusions consistent with pulmonary edema which is likely cardiogenic in nature. Ernie Jean DO 10/20/20 0859 Thank you for allowing us to participate in the care of your patient.
[2020-10-20] MEDS ORDERED: Aspirin 81 MG Tab.EC PO SCH (09:00)
[2020-10-20] MEDS ORDERED: Lisinopril 20 MG Tab PO SCH (09:00)
[2020-10-20] MEDS ORDERED: Clopidogrel 75 MG Tab PO SCH (09:00)
[2020-10-20] MEDS ORDERED: Insulin Glargine,Human Rec. Analog 100 Units/ML 3 ML Pen SUBCUT SCH (09:00)
[2020-10-20] MEDS ORDERED: Carvedilol 12.5 MG Tab PO SCH (09:00)
[2020-10-20] MEDS ORDERED: hydrALAZINE 50 MG Tab PO SCH (09:00)
[2020-10-20] MEDS ORDERED: Escitalopram 10 MG Tab PO SCH (09:00)
[2020-10-20] MEDS ORDERED: Loratadine 10 MG Tab PO SCH (09:00)
[2020-10-20] MEDS ORDERED: [UNRECOGNIZED DRUG - OTHER] NASBOTH SCH (09:00)
[2020-10-20] MEDS ORDERED: Acetaminophen 325 MG Tab PO SCH (09:00)
[2020-10-20] MEDS ORDERED: SODIUM CHLORIDE NASBOTH SCH (09:00)
[2020-10-20] MEDS ORDERED: guaiFENesin 600 MG Tab.ER PO SCH (09:00)
[2020-10-20] MEDS ORDERED: Famotidine 20 MG Tab PO SCH (09:00)
[2020-10-20] MEDS ORDERED: ALOE VERA NASBOTH SCH (09:00)
[2020-10-20] MEDS ORDERED: Fluticasone Propionate Nasal Spray 16 GM Bottle NASBOTH SCH (09:00)
--- NOTE | 2020-10-20 09:05 | CR ---
[id number] RAD/RAD Chest PA or AP 1V EXAM: RAD Chest PA or AP 1V INDICATION: PAIN, SHORTNESS OF BREATH COMPARISON: September 09, 2020. DISCUSSION: Cardiomediastinal silhouette is enlarged but stable. Patchy pulmonary opacifications bilaterally, right greater than left. No pneumothorax or pleural effusion. IMPRESSION: Findings most consistent with CHF exacerbation. Ernie Jean DO 10/20/20 0903 Thank you for allowing us to participate in the care of your patient.
[2020-10-20] MEDS ORDERED: Furosemide 40 MG/4 ML VIAL IVPUSH ONE (09:48)
[2020-10-20] MEDS ORDERED: Heparin Sodium/D5W 250 ML IV SCH (10:00)
[2020-10-20] MEDS ORDERED: Heparin Sodium 5,000 Units/ML Vial IVPUSH ONE (10:23)
--- NOTE | 2020-10-20 10:39 | PCM.HP.2 ---
H&P History of Present Illness - General Date of Service: 10/20/20 Source of Information: Patient, EMS Notes Reviewed, Family, [facility] Records, Provider (Norman Montero PA-C (ED provider)), RN, RN Notes Reviewed, Significant Other History Limitations: Reports: No Limitations - History of Present Illness Initial Comments - Free Text/Narative: Mr. Vidal reports being in his most recent state of health until the evening of 10/19/20 around 2100 when he began having shortness of breath. SNF staff noted hypoxia with saturations mid-80s on room air and he was started on oxygen via nasal cannula. I was called with status notification and staff verified with the patient and who agreed to transport for further evaluation. He was transported to the [facility] ED and later admitted, with workup and details as noted below. This morning, he endorses ongoing shortness of breath, but no current chest pain or tightness. He endorses some prior chest tightness, but no overt chest pain. He has been residing at [facility] in [facility] since 08/30/20 s/p acute CVA and was seen on rounds most recently on 10/18/20. He was previously living with his independently in [place]. Function of left sided deficits s/p CVA have been improving. He has not had any new concerns arise in the past few weeks. Chest Pain Score (Numeric/FACES): 8 - Related Data Allergies/Adverse Reactions: Allergies Allergy/AdvReac Type Severity Reaction Status Date / Time No Known Allergies Allergy Verified 10/20/20 01:35 Home Medications: Home Meds Acetaminophen [Tylenol] 650 mg PO Q4HR PRN 09/09/20 [History] Aspirin [Aspirin EC] 81 mg PO DAILY 09/09/20 [History] Clopidogrel Bisulfate [Clopidogrel] 75 mg PO DAILY 09/09/20 [History] Escitalopram Oxalate 10 mg PO DAILY 09/09/20 [History] Famotidine 20 mg PO BID 09/09/20 [History] Fluticasone Propionate [Flonase] 1 spray NASBOTH BID 09/09/20 [History] Insulin Aspart [Insulin Aspart Flexpen] 6 unit SQ TIDMEALS 09/09/20 [History] Insulin Aspart [Insulin Aspart Flexpen] See Protocol SQ TID PRN 09/09/20 [History] Loratadine 10 mg PO DAILY 09/09/20 [History] Mirtazapine [Remeron] 15 mg PO BEDTIME 09/09/20 [History] Multivit-Min/FA/Lycopen/Lutein [Sentry Senior Tablet] 1 tab PO ACDINNER 09/09/20 [History] atorvaSTATin Calcium [Atorvastatin Calcium] 80 mg PO BEDTIME 09/09/20 [History] carvediloL [Carvedilol] 25 mg PO BID 09/09/20 [History] guaiFENesin [Guaifenesin ER] 600 mg PO Q12HR 09/09/20 [History] hydrALAZINE HCl [Hydralazine HCl] 50 mg PO TID 09/09/20 [History] lisinopriL [Lisinopril] 20 mg PO BID 09/09/20 [History] Acetaminophen 650 mg PO TID 10/20/20 [History] Insulin Glarg,Human.Rec.Analog [Lantus Solostar] 17 unit SUBCUT DAILY 10/20/20 [History] Sodium Chloride/Aloe Vera [[place] Saline Nasal Gel Horatio] 3 sprays NASBOTH Q2H PRN 10/20/20 [History] Sodium Chloride/Aloe Vera [[place] Saline Nasal Gel Horatio] 3 sprays NASBOTH QID 10/20/20 [History] Past Medical History HEENT History: Reports: Impaired Vision Other HEENT History: blind right eye Cardiovascular History: Reports: High Cholesterol, Hypertension Gastrointestinal History: Reports: GERD Genitourinary History: Reports: Urinary Incontinence Neurological History: Reports: CVA, Speech Problems Other Neuro History: left sided weakness Psychiatric History: Reports: Depression Endocrine/Metabolic History: Reports: Diabetes, Type II Hematologic History: Reports: Anticoagulation Therapy - Infectious Disease History Infectious Disease History: Reports: Novel Coronavirus - Past Surgical History HEENT Surgical History: Reports: Cataract Surgery Social & Family History - Family History Family Medical History: No Pertinent Family History (None known) - Tobacco Use Tobacco Use Status *Q: Former Tobacco User Used Tobacco, but Quit: No - Caffeine Use Caffeine Use: Reports: Other Other Caffeine Use: unable to obtain information from patient - Recreational Drug Use Recreational Drug Use: No H&P Review of Systems - Review of Systems: Review Of Systems: See Below General: Reports: Weakness. Denies: Fever, Chills, Fatigue HEENT: Reports: Visual Changes. Denies: Headaches, Sore Throat Pulmonary: Reports: Shortness of Breath. Denies: Wheezing, Pleuritic Chest Pain, Cough, Sputum, Hemoptysis Cardiovascular: Denies: Chest Pain, Lightheadedness, Syncope Gastrointestinal: Denies: Abdominal Pain, Constipation, Diarrhea, Nausea, Vomiting Genitourinary: Reports: Incontinence. Denies: Dysuria, Frequency Musculoskeletal: Denies: Joint Pain, Joint Swelling, Muscle Pain Skin: Denies: Cyanosis, Jaundice, Rash, Wound Psychiatric: Denies: Confusion, Depression, Anxiety Neurological: Reports: Pre-Existing Deficit, Trouble Speaking, Difficulty Walking, Weakness, Gait Disturbance. Denies: Dizziness, Headache Hematologic/Lymphatic: Reports: Easy Bleeding, Easy Bruising. Denies: Anemia Exam - Exam Exam: See Below - Vital Signs Vital Signs: Last Vital Signs Temp 36.6 C 10/20/20 08:50 Pulse 70 10/20/20 09:04 Resp 20 10/20/20 08:50 BP 181/88 H 10/20/20 09:04 Pulse Ox 94 L 10/20/20 08:50 Weight: 78.131 kg - Exam Physical Exam Comments:: GENERAL: Well-appearing elderly white male lying in hospital bed in no acute distress. and daughter at bedside. HEENT: Normocephalic, atraumatic. Conjunctiva clear. Nares patent without discharge. Mucous membranes mildly dry. NECK: Supple, no masses. CV: Regular rate and rhythm, 3/6 systolic murmur throughout precordium loudest at base with radiation to bilateral carotids, no rubs or gallops. 2+ radial pulses. PULMONARY: Normal effort, clear to auscultation bilaterally, no wheezes, rales, or rhonchi. ABDOMEN: Positive bowel sounds, soft, nontender, nondistended. EXTREMITIES: No edema, cyanosis, or clubbing. MUSCULOSKELETAL/NEUROLOGICAL: L sided weakness. DERMATOLOGIC: No rashes or suspicious lesions in exposed areas. PSYCHIATRIC: Alert, interactive, mildly flattened affect, mild dysarthria. - Patient Data Lab Results Last 24 hrs: Laboratory Results - last 24 hr 10/19/20 10/19/20 10/19/20 Range/Units 00:23 23:30 23:30 WBC 8.20 (5.00-10.00) 10^3/uL RBC 3.60 L (4.50-6.00) 10^6/uL Hgb 10.3 L (13.0-17.0) g/dL Hct 30.8 L (40.0-52.0) % MCV 85.6 (82.0-92.0) fL MCH 28.6 (27.0-31.0) pg MCHC 33.4 (32.0-36.0) g/dL RDW 15.8 H (11.5-14.5) % Plt Count 227 (150-400) 10^3/uL MPV 10.2 (7.4-10.4) fL Immature Gran % (Auto) (0.0-5.0) % Neut % (Auto) (50.0-70.0) % Lymph % (Auto) (20.0-40.0) % [place] % (Auto) (2.0-8.0) % Eos % (Auto) (1.0-3.0) % Baso % (Auto) (0.0-1.0) % Neut # (Auto) (2.50-7.00) 10^3/uL Lymph # (Auto) (1.00-4.00) 10^3/uL [place] # (Auto) (0.10-0.80) 10^3/uL Eos # (Auto) (0.10-0.30) 10^3/uL Baso # (Auto) (0.00-0.10) 10^3/uL Immature Gran # (Auto) (0.00-0.50) 10^3/uL Add Manual Diff Yes Neutrophils % (Manual) 39 L (50-70) % Band Neutrophils % 2 L (4-12) % Lymphocytes % (Manual) 34 (20-40) % Monocytes % (Manual) 8 (2-8) % Eosinophils % (Manual) 17 H (1-3) % Absolute Neutrophils 3.3620 Lymphocytes # (Manual) 2.7880 Monocytes # (Manual) 0.6560 Eosinophils # (Manual) 1.3940 Clumped Platelets PT 10.2 (9.2-11.2) SEC INR 1.0 (0.9-1.1) APTT 25.6 (22.8-31.4) SEC Sodium (136-145) mmol/L Potassium (3.5-5.1) mmol/L Chloride (98-107) mmol/L Carbon Dioxide (21.0-32.0) mmol/L Anion Gap (5-15) mmol/L BUN (7-18) mg/dL Creatinine (0.51-1.17) mg/dL Est Cr Clr Drug Dosing Estimated GFR (MDRD) mL/min Glucose (70-140) mg/dL POC Glucose (70-140) mg/dL Lactic Acid 1.1 (0.4-2.0) mmol/L Calcium (8.7-10.3) mg/dL Total Bilirubin (0.2-1.0) mg/dL AST (15-37) U/L ALT (14-63) U/L Alkaline Phosphatase (46-116) U/L Troponin I (0.000-0.056) ng/mL C-Reactive Protein (0.0-0.9) mg/dL B-Natriuretic Peptide (0-100) pg/mL Total Protein (6.4-8.2) g/dL Albumin (3.40-5.00) g/dL Specimen Type Urine Color (YELLOW) Urine Appearance (CLEAR) Urine pH (5.0-9.0) Ur Specific [place] (1.005-1.030) Urine Protein (NEGATIVE) mg/dL Urine Glucose (UA) (NEGATIVE) mg/dL Urine Ketones (NEGATIVE) mg/dL Urine Occult Blood (NEGATIVE) Urine Nitrite (NEGATIVE) Urine Bilirubin (NEGATIVE) Urine Urobilinogen (0.2-1.0) E.U./dL Ur Leukocyte Esterase (NEGATIVE) Urine RBC (0-5) /HPF Urine WBC (0-5) /HPF Ur Epithelial Cells /LPF Amorphous Sediment (0/HPF) /HPF Urine Bacteria (NONE TO FEW) /HPF Urine Mucus (NEGATIVE) /LPF SARS CoV-2 RNA Rapid RICHARD (NEGATIVE) 10/19/20 10/19/20 10/19/20 Range/Units 23:30 23:33 23:34 WBC (5.00-10.00) 10^3/uL RBC (4.50-6.00) 10^6/uL Hgb (13.0-17.0) g/dL Hct (40.0-52.0) % MCV (82.0-92.0) fL MCH (27.0-31.0) pg MCHC (32.0-36.0) g/dL RDW (11.5-14.5) % Plt Count (150-400) 10^3/uL MPV (7.4-10.4) fL Immature Gran % (Auto) (0.0-5.0) % Neut % (Auto) (50.0-70.0) % Lymph % (Auto) (20.0-40.0) % [place] % (Auto) (2.0-8.0) % Eos % (Auto) (1.0-3.0) % Baso % (Auto) (0.0-1.0) % Neut # (Auto) (2.50-7.00) 10^3/uL Lymph # (Auto) (1.00-4.00) 10^3/uL [place]leigh # (Auto) (0.10-0.80) 10^3/uL Eos # (Auto) (0.10-0.30) 10^3/uL Baso # (Auto) (0.00-0.10) 10^3/uL Immature Gran # (Auto) (0.00-0.50) 10^3/uL Add Manual Diff Neutrophils % (Manual) (50-70) % Band Neutrophils % (4-12) % Lymphocytes % (Manual) (20-40) % Monocytes % (Manual) (2-8) % Eosinophils % (Manual) (1-3) % Absolute Neutrophils Lymphocytes # (Manual) Monocytes # (Manual) Eosinophils # (Manual) Clumped Platelets PT (9.2-11.2) SEC INR (0.9-1.1) APTT (22.8-31.4) SEC Sodium 139 D (136-145) mmol/L Potassium 3.4 L (3.5-5.1) mmol/L Chloride 105 (98-107) mmol/L Carbon Dioxide 20.8 L (21.0-32.0) mmol/L Anion Gap 16.6 H (5-15) mmol/L BUN 15 (7-18) mg/dL Creatinine 0.93 (0.51-1.17) mg/dL Est Cr Clr Drug Dosing TNP Estimated GFR (MDRD) > 60 mL/min Glucose 197 H (70-140) mg/dL POC Glucose (70-140) mg/dL Lactic Acid (0.4-2.0) mmol/L Calcium 8.1 L (8.7-10.3) mg/dL Total Bilirubin 0.6 (0.2-1.0) mg/dL AST 22 (15-37) U/L ALT 19 (14-63) U/L Alkaline Phosphatase 66 (46-116) U/L Troponin I 0.022 (0.000-0.056) ng/mL C-Reactive Protein (0.0-0.9) mg/dL B-Natriuretic Peptide 269 H (0-100) pg/mL Total Protein 5.8 L (6.4-8.2) g/dL Albumin 2.47 L (3.40-5.00) g/dL Specimen Type Urinvoid Urine Color Yellow (YELLOW) Urine Appearance Clear (CLEAR) Urine pH 5.5 (5.0-9.0) Ur Specific [place] >= 1.030 (1.005-1.030) Urine Protein 100 H (NEGATIVE) mg/dL Urine Glucose (UA) Negative (NEGATIVE) mg/dL Urine Ketones Negative (NEGATIVE) mg/dL Urine Occult Blood Trace-intact H (NEGATIVE) Urine Nitrite Negative (NEGATIVE) Urine Bilirubin Negative (NEGATIVE) Urine Urobilinogen 0.2 (0.2-1.0) E.U./dL Ur Leukocyte Esterase Trace H (NEGATIVE) Urine RBC 10-20 H (0-5) /HPF Urine WBC 5-10 H (0-5) /HPF Ur Epithelial Cells Rare /LPF Amorphous Sediment Moderate H (0/HPF) /HPF Urine Bacteria Not seen (NONE TO FEW) /HPF Urine Mucus Few H (NEGATIVE) /LPF SARS CoV-2 RNA Rapid RICHARD (NEGATIVE) 10/19/20 10/20/20 10/20/20 Range/Units 23:36 07:40 07:40 WBC 8.29 (5.00-10.00) 10^3/uL RBC 3.70 L (4.50-6.00) 10^6/uL Hgb 10.4 L (13.0-17.0) g/dL Hct 31.7 L (40.0-52.0) % MCV 85.7 (82.0-92.0) fL MCH 28.1 (27.0-31.0) pg MCHC 32.8 (32.0-36.0) g/dL RDW 15.8 H (11.5-14.5) % Plt Count 189 (150-400) 10^3/uL MPV 10.3 (7.4-10.4) fL Immature Gran % (Auto) 0.2 (0.0-5.0) % Neut % (Auto) 54.2 (50.0-70.0) % Lymph % (Auto) 27.1 (20.0-40.0) % [place] % (Auto) 13.4 H (2.0-8.0) % Eos % (Auto) 4.6 H (1.0-3.0) % Baso % (Auto) 0.5 (0.0-1.0) % Neut # (Auto) 4.49 (2.50-7.00) 10^3/uL Lymph # (Auto) 2.25 (1.00-4.00) 10^3/uL [place] # (Auto) 1.11 H (0.10-0.80) 10^3/uL Eos # (Auto) 0.38 H (0.10-0.30) 10^3/uL Baso # (Auto) 0.04 (0.00-0.10) 10^3/uL Immature Gran # (Auto) 0.02 (0.00-0.50) 10^3/uL Add Manual Diff Neutrophils % (Manual) (50-70) % Band Neutrophils % (4-12) % Lymphocytes % (Manual) (20-40) % Monocytes % (Manual) (2-8) % Eosinophils % (Manual) (1-3) % Absolute Neutrophils Lymphocytes # (Manual) Monocytes # (Manual) Eosinophils # (Manual) Clumped Platelets Moderate PT (9.2-11.2) SEC INR (0.9-1.1) APTT (22.8-31.4) SEC Sodium (136-145) mmol/L Potassium (3.5-5.1) mmol/L Chloride (98-107) mmol/L Carbon Dioxide (21.0-32.0) mmol/L Anion Gap (5-15) mmol/L BUN (7-18) mg/dL Creatinine (0.51-1.17) mg/dL Est Cr Clr Drug Dosing Estimated GFR (MDRD) mL/min Glucose (70-140) mg/dL POC Glucose (70-140) mg/dL Lactic Acid (0.4-2.0) mmol/L Calcium (8.7-10.3) mg/dL Total Bilirubin (0.2-1.0) mg/dL AST (15-37) U/L ALT (14-63) U/L Alkaline Phosphatase (46-116) U/L Troponin I 1.030 H* (0.000-0.056) ng/mL C-Reactive Protein 2.5 H (0.0-0.9) mg/dL B-Natriuretic Peptide (0-100) pg/mL Total Protein (6.4-8.2) g/dL Albumin (3.40-5.00) g/dL Specimen Type Urine Color (YELLOW) Urine Appearance (CLEAR) Urine pH (5.0-9.0) Ur Specific [place] (1.005-1.030) Urine Protein (NEGATIVE) mg/dL Urine Glucose (UA) (NEGATIVE) mg/dL Urine Ketones (NEGATIVE) mg/dL Urine Occult Blood (NEGATIVE) Urine Nitrite (NEGATIVE) Urine Bilirubin (NEGATIVE) Urine Urobilinogen (0.2-1.0) E.U./dL Ur Leukocyte Esterase (NEGATIVE) Urine RBC (0-5) /HPF Urine WBC (0-5) /HPF Ur Epithelial Cells /LPF Amorphous Sediment (0/HPF) /HPF Urine Bacteria (NONE TO FEW) /HPF Urine Mucus (NEGATIVE) /LPF SARS CoV-2 RNA Rapid RICHARD Negative (NEGATIVE) 10/20/20 10/20/20 Range/Units 07:40 07:40 WBC (5.00-10.00) 10^3/uL RBC (4.50-6.00) 10^6/uL Hgb (13.0-17.0) g/dL Hct (40.0-52.0) % MCV (82.0-92.0) fL MCH (27.0-31.0) pg MCHC (32.0-36.0) g/dL RDW (11.5-14.5) % Plt Count (150-400) 10^3/uL MPV (7.4-10.4) fL Immature Gran % (Auto) (0.0-5.0) % Neut % (Auto) (50.0-70.0) % Lymph % (Auto) (20.0-40.0) % [place] % (Auto) (2.0-8.0) % Eos % (Auto) (1.0-3.0) % Baso % (Auto) (0.0-1.0) % Neut # (Auto) (2.50-7.00) 10^3/uL Lymph # (Auto) (1.00-4.00) 10^3/uL [place] # (Auto) (0.10-0.80) 10^3/uL Eos # (Auto) (0.10-0.30) 10^3/uL Baso # (Auto) (0.00-0.10) 10^3/uL Immature Gran # (Auto) (0.00-0.50) 10^3/uL Add Manual Diff Neutrophils % (Manual) (50-70) % Band Neutrophils % (4-12) % Lymphocytes % (Manual) (20-40) % Monocytes % (Manual) (2-8) % Eosinophils % (Manual) (1-3) % Absolute Neutrophils Lymphocytes # (Manual) Monocytes # (Manual) Eosinophils # (Manual) Clumped Platelets PT (9.2-11.2) SEC INR (0.9-1.1) APTT (22.8-31.4) SEC Sodium 141 (136-145) mmol/L Potassium 3.7 (3.5-5.1) mmol/L Chloride 107 (98-107) mmol/L Carbon Dioxide 20.4 L (21.0-32.0) mmol/L Anion Gap 17.3 H (5-15) mmol/L BUN 12 (7-18) mg/dL Creatinine 0.79 (0.51-1.17) mg/dL Est Cr Clr Drug Dosing 84.18 Estimated GFR (MDRD) > 60 mL/min Glucose 130 (70-140) mg/dL POC Glucose 125 (70-140) mg/dL Lactic Acid (0.4-2.0) mmol/L Calcium 8.4 L (8.7-10.3) mg/dL Total Bilirubin (0.2-1.0) mg/dL AST (15-37) U/L ALT (14-63) U/L Alkaline Phosphatase (46-116) U/L Troponin I (0.000-0.056) ng/mL C-Reactive Protein (0.0-0.9) mg/dL B-Natriuretic Peptide (0-100) pg/mL Total Protein (6.4-8.2) g/dL Albumin (3.40-5.00) g/dL Specimen Type Urine Color (YELLOW) Urine Appearance (CLEAR) Urine pH (5.0-9.0) Ur Specific [place] (1.005-1.030) Urine Protein (NEGATIVE) mg/dL Urine Glucose (UA) (NEGATIVE) mg/dL Urine Ketones (NEGATIVE) mg/dL Urine Occult Blood (NEGATIVE) Urine Nitrite (NEGATIVE) Urine Bilirubin (NEGATIVE) Urine Urobilinogen (0.2-1.0) E.U./dL Ur Leukocyte Esterase (NEGATIVE) Urine RBC (0-5) /HPF Urine WBC (0-5) /HPF Ur Epithelial Cells /LPF Amorphous Sediment (0/HPF) /HPF Urine Bacteria (NONE TO FEW) /HPF Urine Mucus (NEGATIVE) /LPF SARS CoV-2 RNA Rapid RICHARD (NEGATIVE) Result Diagrams: 10/20/20 07:40 10/20/20 07:40 Sepsis Event Note - Evaluation Sepsis Screening Result: No Definite Risk - Focused Exam Vital Signs: Vital Signs Temp Pulse Pulse Resp BP BP Pulse Ox 10/20/20 09:04 70 181/88 H 10/20/20 09:03 181/88 H 10/20/20 09:02 181/88 H 10/20/20 08:50 36.6 C 72 20 187/87 H 94 L 10/20/20 06:35 35.3 C L 94 20 154/70 H 94 L 10/20/20 03:19 10/20/20 03:15 70 18 131/71 97 10/20/20 03:01 72 19 144/72 H 98 10/20/20 02:46 74 13 158/66 H 98 10/20/20 02:16 63 16 177/77 H 99 10/20/20 02:01 71 18 169/79 H 98 10/20/20 01:45 65 20 126/69 98 10/20/20 01:31 69 21 H 137/68 98 10/20/20 01:15 74 21 H 146/74 H 97 10/20/20 01:01 72 20 148/74 H 99 10/20/20 00:45 72 23 H 162/84 H 99 10/20/20 00:30 77 25 H 166/84 H 98 10/20/20 00:00 80 162/80 H 98 10/19/20 23:46 84 159/80 H 97 10/19/20 23:35 10/19/20 23:30 84 155/85 H 94 L 10/19/20 23:23 164/90 H 10/19/20 23:21 36.5 C 94 24 H 164/90 H 91 L Pulse Ox 10/20/20 09:04 10/20/20 09:03 10/20/20 09:02 10/20/20 08:50 10/20/20 06:35 10/20/20 03:19 97 10/20/20 03:15 10/20/20 03:01 10/20/20 02:46 10/20/20 02:16 10/20/20 02:01 10/20/20 01:45 10/20/20 01:31 10/20/20 01:15 10/20/20 01:01 10/20/20 00:45 10/20/20 00:30 10/20/20 00:00 10/19/20 23:46 10/19/20 23:35 94 L 10/19/20 23:30 10/19/20 23:23 10/19/20 23:21 Problem List Initiated/Reviewed/Updated: Yes Orders Last 24hrs: Active Orders 24 hr Category Date Time Status Patient Status [ADT] Routine ADT 10/20/20 03:19 Active Blood Glucose Check, Bedside [RC] WITHMEALSANDBED Care 10/20/20 07:45 Active Cardiac Monitoring [RC] 03,07,11,15,19,23 Care 10/20/20 03:20 Active EKG Documentation Completion [RC] ASDIRECTED Care 10/20/20 08:42 Active Oxygen Therapy [RC] PRN Care 10/20/20 03:19 Active Up With Assistance [RC] ASDIRECTED Care 10/20/20 03:19 Active VTE/DVT Education [RC] PER UNIT ROUTINE Care 10/20/20 03:19 Active Vital Signs [RC] 03,07,11,15,19,23 Care 10/20/20 03:19 Active [employer] Diet [DIET] Diet 10/20/20 Breakfast Active PTT,PARTIAL THROMBOPLSTIN TIME [COAG] Routine Lab 10/20/20 09:48 Received Acetaminophen [TylenoL] Med 10/20/20 07:42 Active 650 mg PO Q4HR PRN Acetaminophen [TylenoL] Med 10/20/20 09:00 Active 650 mg PO TID Aspirin [Halfprin] Med 10/20/20 09:00 Active 81 mg PO DAILY Clopidogrel [Plavix] Med 10/20/20 09:00 Active 75 mg PO DAILY Dextrose 50% in Water Med 10/20/20 07:42 Active 50 ml IV ASDIRECTED PRN Escitalopram [Lexapro] Med 10/20/20 09:00 Active 10 mg PO DAILY Famotidine [Pepcid] Med 10/20/20 09:00 Active 20 mg PO BID Fluticasone Propionate [Flonase] Med 10/20/20 09:00 Active 0 gm NASBOTH BID Glucagon,Human Recombinant [GlucaGen] Med 10/20/20 07:42 Active 1 mg IM ASDIRECTED PRN Heparin Sodium/D5W 250 ml Med 10/20/20 10:00 Active IV TITRATE Insulin Aspart [NovoLOG] Med 10/20/20 08:00 Active See Protocol SUBCUT WITHMEALSANDBED Insulin Glarg,Human.Rec.Analog [LantUS Solostar] Med 10/20/20 09:00 Active 17 units SUBCUT DAILY Loratadine [Claritin] Med 10/20/20 09:00 Active 10 mg PO DAILY Mirtazapine [Remeron] Med 10/20/20 21:00 Active 15 mg PO BEDTIME atorvaSTATin [Lipitor] Med 10/20/20 21:00 Active 80 mg PO BEDTIME carvediloL [Coreg] Med 10/20/20 09:00 Active 25 mg PO BID guaiFENesin [Mucinex] Med 10/20/20 09:00 Active 600 mg PO BID hydrALAZINE [Apresoline] Med 10/20/20 09:00 Active 50 mg PO TID lisinopriL [Prinivil] Med 10/20/20 09:00 Active 20 mg PO BID Resuscitation Status Routine Resus Stat 10/20/20 03:19 Ordered EKG 12 Lead [EK] Stat Ther 10/19/20 23:34 Stop Req EKG 12 Lead [EK] Stat Ther 10/20/20 08:42 Ordered Medication Orders Acetaminophen (Acetaminophen 325 Mg Tab) 650 mg PO Q4HR PRN PRN Reason: Pain Acetaminophen (Acetaminophen 325 Mg Tab) 650 mg PO TID [facility] Last Admin: 10/20/20 09:02 Dose: 650 mg Documented by: MATT Aspirin (Aspirin 81 Mg Tab.Ec) 81 mg PO DAILY [facility] Last Admin: 10/20/20 08:57 Dose: Not Given Documented by: MATT Atorvastatin Calcium (Atorvastatin 40 Mg Tab) 80 mg PO BEDTIME [facility] Carvedilol (Carvedilol 12.5 Mg Tab) 25 mg PO BID [facility] Last Admin: 10/20/20 09:04 Dose: 25 mg Documented by: MATT Clopidogrel Bisulfate (Clopidogrel 75 Mg Tab) 75 mg PO DAILY [facility] Last Admin: 10/20/20 09:02 Dose: 75 mg Documented by: MATT Dextrose/Water (50% Dextrose In Water 50 Ml Syringe) 50 ml IV ASDIRECTED PRN PRN Reason: Hypoglycemia Escitalopram Oxalate (Escitalopram 10 Mg Tab) 10 mg PO DAILY [facility] Last Admin: 10/20/20 09:03 Dose: 10 mg Documented by: MATT Famotidine (Famotidine 20 Mg Tab) 20 mg PO BID [facility] Last Admin: 10/20/20 09:04 Dose: 20 mg Documented by: MATT Fluticasone Propionate (Fluticasone Propionate Nasal [place] 16 Gm Bottle) 0 gm NASBOTH BID [facility] Last Admin: 10/20/20 09:55 Dose: Not Given Documented by: MATT Glucagon (Glucagon,Human Recombinant 1 Mg Vial) 1 mg IM ASDIRECTED PRN PRN Reason: Hypoglycemia Guaifenesin (Guaifenesin 600 Mg Tab.Er) 600 mg PO BID [facility] Last Admin: 10/20/20 09:03 Dose: 600 mg Documented by: MATT Hydralazine HCl (Hydralazine 50 Mg Tab) 50 mg PO TID [facility] Last Admin: 10/20/20 09:03 Dose: 50 mg Documented by: MATT Heparin Sodium/Dextrose () 250 mls @ 9.376 mls/hr IV TITRATE [facility]; Protocol Last Admin: 10/20/20 10:22 Dose: 12 units/kg/hr, 9.376 mls/hr Documented by: MATT Cosigned by: MILLICENT Insulin Aspart (Insulin Aspart 100 Units/Ml 3 Ml Pen) 0 unit SUBCUT WITHMEALSANDBED [facility]; Protocol Last Admin: 10/20/20 08:14 Dose: Not Given Documented by: MATT Insulin Glargine (Insulin Glargine,Human Rec. Analog 100 Units/Ml 3 Ml Pen) 17 units SUBCUT DAILY [facility] Last Admin: 10/20/20 09:55 Dose: Not Given Documented by: MATT Lisinopril (Lisinopril 20 Mg Tab) 20 mg PO BID [facility] Last Admin: 10/20/20 09:02 Dose: 20 mg Documented by: MATT Loratadine (Loratadine 10 Mg Tab) 10 mg PO DAILY [facility] Last Admin: 10/20/20 09:03 Dose: 10 mg Documented by: MATT Mirtazapine (Mirtazapine 15 Mg Tab) 15 mg PO BEDTIME [facility] Assessment/Plan Comment:: Same day admission and discharge--see Discharge Summary for details.
--- NOTE | 2020-10-20 11:00 | PCM.DCSUM1 ---
Discharge Summary - Hospital Course Free Text/Narrative:: Date of admission: 10/20/20 Date of discharge: 10/20/20 Admission diagnoses: # Acute hypoxic respiratory failure # Acute pulmonary edema Discharge diagnoses: # Acute hypoxic respiratory failure # Acute pulmonary edema # NSTEMI # Aortic valve stenosis, suspect acute worsening Chronic diagnoses: # History of ischemic cerebrovascular event, right pontine, 08/07/20 # Right carotid stenosis: 08/07/20 CTA with 50-60% ICA luminal narrowing. # Hypertension # Reflux # Normocytic anemia # Right mediastinal lymphadenopathy: Noted on 08/07/20 CTA. # Diabetes mellitus, type 2: 08/07/20 A1c >14. # Protein-calorie malnutrition # Depression # Insomnia # Paranasal sinus disease, severe: Noted on 08/07/20 and 08/27/20 CT head. Consultations: Dr. Zhong, hospitalist, [facility] Procedures/Imagin10/20/20 CT chest with contrast: Diffuse groundglass density with small to moderate bilateral pleural effusions consistent with pulmonary edema. Hospital course: Mr. Vidal is a 69yoM with a history notable for no medical care until 08/07/20 when he was noted to have an acute ischemic R pontine CVA and had subsequent hospitalization, rehab hospitalization, and placement at [facility] on 08/30/20. Since CVA, he has been nonambulatory with left sided hemiparesis and notably diagnosed with aortic valve stenosis, HTN, and DMT2. He was in his most recent baseline state of health until the evening of 10/19/20 around 2100 when he began having shortness of breath. SNF staff noted hypoxia with saturations mid- 80s on room air and he was started on oxygen via nasal cannula. I was called with status notification and staff verified with the patient and who agreed to transport for further evaluation. En route via EMS, he was on oxygen 10lpm via mask and given nitro SL x2 for the report of chest pressure. Notable [facility] ED course and workup: - Oxygen 96% on 10lpm - VS notable for afebrile, BP 164/90, P 94, RR 24 - Physical examination documented as decreased breath sounds and normal CV exam - CBC normal except hgb 10.3 and WBC differential eosinophilia - CMP normal except K 3.4, CO2 20.8, Ca 8.1, protein 5.8/albumin 2.47 - LA 1.1 - BNP 169 - Troponin 0.022 (normal range 0-0.056) - UA with 10-20 RBC, 5-10 WBC, moderate sediment - COVID PCR negative - EKG reported as no change from prior - CXR reported by ED provider as concern for pneumonia with overnight radiology read per ED provider stating concern for mild edema; later review of report stating probable acute pulmonary edema - Ceftriaxone 2g IV administered I was called for admission by ED provider for the diagnosis of pneumonia. Upon further discussion about the patient's status not seeming to fit clearly with pneumonia or any infectious etiology, recommended further evaluation with CTA for alternate diagnosis, including PE. CTA performed and I was called by ED provider with report showing no PE, but with diffuse bilateral consolidation. ED provider stated concern remained for early infectious etiology and that the patient had been weaned to 4lpm with saturations in the mid-90s and denied examination concerns for fluid overload so felt diuretics were not necessary at this time. I accepted for admission with orders to obtain CRP, repeat troponin, and monitor on telemetry. Bedside evaluation on the morning of 10/20/20 with patient stating no concerns, notably no current shortness of breath or chest pain. Exam notable for 3/6 systolic murmur fitting with aortic stenosis, but no current JVD, pulmonary crackles, or lower extremity edema. Oxygen requirement continues at 4lpm. Repeat troponin resulted at 1.030. EKG without acute changes from prior. CBC and BMP stable. ASA 324mg po and furosemide 20mg IV administered. Had a lengthy discussion about current findings with concern for NSTEMI and valvular disease along with further evaluation and management options. He and family at bedside agreed that he would desire further evaluation with possible cardiac catheterization and intervention as well as further evaluation for worsening valvular disease for which transfer would be needed. Reviewed code status and confirmed DNR/DNI status. Discussed care with Dr. Zhong, hospitalist, [facility], via [facility] who accepted for admission. Started heparin drip and gave additional furosemide 20mg IV. - Discharge Data Discharge Date: 10/20/20 Discharge Disposition: DC/Tfer to Acute Hospital 02 Condition: Serious - Referral to Home Health Primary Care Physician: Addis Perea MD - Patient Instructions Diet: NPO Activity: Bedrest - Discharge Plan *PRESCRIPTION DRUG MONITORING PROGRAM REVIEWED*: Not Applicable *COPY OF PRESCRIPTION DRUG MONITORING REPORT IN PATIENT IGNACIA: Not Applicable Home Medications: Home Meds Acetaminophen [Tylenol] 650 mg PO Q4HR PRN 09/09/20 [History] Aspirin [Aspirin EC] 81 mg PO DAILY 09/09/20 [History] Clopidogrel Bisulfate [Clopidogrel] 75 mg PO DAILY 09/09/20 [History] Escitalopram Oxalate 10 mg PO DAILY 09/09/20 [History] Famotidine 20 mg PO BID 09/09/20 [History] Fluticasone Propionate [Flonase] 1 spray NASBOTH BID 09/09/20 [History] Insulin Aspart [Insulin Aspart Flexpen] 6 unit SQ TIDMEALS 09/09/20 [History] Insulin Aspart [Insulin Aspart Flexpen] See Protocol SQ TID PRN 09/09/20 [History] Loratadine 10 mg PO DAILY 09/09/20 [History] Mirtazapine [Remeron] 15 mg PO BEDTIME 09/09/20 [History] Multivit-Min/FA/Lycopen/Lutein [Sentry Senior Tablet] 1 tab PO ACDINNER 09/09/20 [History] atorvaSTATin Calcium [Atorvastatin Calcium] 80 mg PO BEDTIME 09/09/20 [History] carvediloL [Carvedilol] 25 mg PO BID 09/09/20 [History] guaiFENesin [Guaifenesin ER] 600 mg PO Q12HR 09/09/20 [History] hydrALAZINE HCl [Hydralazine HCl] 50 mg PO TID 09/09/20 [History] lisinopriL [Lisinopril] 20 mg PO BID 09/09/20 [History] Acetaminophen 650 mg PO TID 10/20/20 [History] Insulin Glarg,Human.Rec.Analog [Lantus Solostar] 17 unit SUBCUT DAILY 10/20/20 [History] Sodium Chloride/Aloe Vera [Rodeo Saline Nasal Gel [place]] 3 sprays NASBOTH Q2H PRN 10/20/20 [History] Sodium Chloride/Aloe Vera [Rodeo Saline Nasal Gel [place]] 3 sprays NASBOTH QID 10/20/20 [History] - Discharge Summary/Plan Comment DC Time >30 min.: Yes Discharge Summary/Plan Comment: Same day admission/discharge. - General Info Date of Service: 10/20/20 Subjective Update: See summary. - Patient Data Vitals - Most Recent: Last Vital Signs Temp 36.6 C 10/20/20 08:50 Pulse 70 10/20/20 09:04 Resp 20 10/20/20 08:50 BP 181/88 H 10/20/20 09:04 Pulse Ox 94 L 10/20/20 08:50 Weight - Most Recent: 78.131 kg I&O - Last 24 hours: Intake & Output 10/19/20 10/20/20 10/20/20 22:59 06:59 14:59 Intake Total 0 Output Total 0 Balance 0 Lab Results - Last 24 hrs: Laboratory Results - last 24 hr 10/19/20 10/19/20 10/19/20 Range/Units 00:23 23:30 23:30 WBC 8.20 (5.00-10.00) 10^3/uL RBC 3.60 L (4.50-6.00) 10^6/uL Hgb 10.3 L (13.0-17.0) g/dL Hct 30.8 L (40.0-52.0) % MCV 85.6 (82.0-92.0) fL MCH 28.6 (27.0-31.0) pg MCHC 33.4 (32.0-36.0) g/dL RDW 15.8 H (11.5-14.5) % Plt Count 227 (150-400) 10^3/uL MPV 10.2 (7.4-10.4) fL Immature Gran % (Auto) (0.0-5.0) % Neut % (Auto) (50.0-70.0) % Lymph % (Auto) (20.0-40.0) % Norman % (Auto) (2.0-8.0) % Eos % (Auto) (1.0-3.0) % Baso % (Auto) (0.0-1.0) % Neut # (Auto) (2.50-7.00) 10^3/uL Lymph # (Auto) (1.00-4.00) 10^3/uL Norman # (Auto) (0.10-0.80) 10^3/uL Eos # (Auto) (0.10-0.30) 10^3/uL Baso # (Auto) (0.00-0.10) 10^3/uL Immature Gran # (Auto) (0.00-0.50) 10^3/uL Add Manual Diff Yes Neutrophils % (Manual) 39 L (50-70) % Band Neutrophils % 2 L (4-12) % Lymphocytes % (Manual) 34 (20-40) % Monocytes % (Manual) 8 (2-8) % Eosinophils % (Manual) 17 H (1-3) % Absolute Neutrophils 3.3620 Lymphocytes # (Manual) 2.7880 Monocytes # (Manual) 0.6560 Eosinophils # (Manual) 1.3940 Clumped Platelets PT 10.2 (9.2-11.2) SEC INR 1.0 (0.9-1.1) APTT 25.6 (22.8-31.4) SEC Sodium (136-145) mmol/L Potassium (3.5-5.1) mmol/L Chloride (98-107) mmol/L Carbon Dioxide (21.0-32.0) mmol/L Anion Gap (5-15) mmol/L BUN (7-18) mg/dL Creatinine (0.51-1.17) mg/dL Est Cr Clr Drug Dosing Estimated GFR (MDRD) mL/min Glucose (70-140) mg/dL POC Glucose (70-140) mg/dL Lactic Acid 1.1 (0.4-2.0) mmol/L Calcium (8.7-10.3) mg/dL Total Bilirubin (0.2-1.0) mg/dL AST (15-37) U/L ALT (14-63) U/L Alkaline Phosphatase (46-116) U/L Troponin I (0.000-0.056) ng/mL C-Reactive Protein (0.0-0.9) mg/dL B-Natriuretic Peptide (0-100) pg/mL Total Protein (6.4-8.2) g/dL Albumin (3.40-5.00) g/dL Specimen Type Urine Color (YELLOW) Urine Appearance (CLEAR) Urine pH (5.0-9.0) Ur Specific [place] (1.005-1.030) Urine Protein (NEGATIVE) mg/dL Urine Glucose (UA) (NEGATIVE) mg/dL Urine Ketones (NEGATIVE) mg/dL Urine Occult Blood (NEGATIVE) Urine Nitrite (NEGATIVE) Urine Bilirubin (NEGATIVE) Urine Urobilinogen (0.2-1.0) E.U./dL Ur Leukocyte Esterase (NEGATIVE) Urine RBC (0-5) /HPF Urine WBC (0-5) /HPF Ur Epithelial Cells /LPF Amorphous Sediment (0/HPF) /HPF Urine Bacteria (NONE TO FEW) /HPF Urine Mucus (NEGATIVE) /LPF SARS CoV-2 RNA Rapid RICHARD (NEGATIVE) 10/19/20 10/19/20 10/19/20 Range/Units 23:30 23:33 23:34 WBC (5.00-10.00) 10^3/uL RBC (4.50-6.00) 10^6/uL Hgb (13.0-17.0) g/dL Hct (40.0-52.0) % MCV (82.0-92.0) fL MCH (27.0-31.0) pg MCHC (32.0-36.0) g/dL RDW (11.5-14.5) % Plt Count (150-400) 10^3/uL MPV (7.4-10.4) fL Immature Gran % (Auto) (0.0-5.0) % Neut % (Auto) (50.0-70.0) % Lymph % (Auto) (20.0-40.0) % Norman % (Auto) (2.0-8.0) % Eos % (Auto) (1.0-3.0) % Baso % (Auto) (0.0-1.0) % Neut # (Auto) (2.50-7.00) 10^3/uL Lymph # (Auto) (1.00-4.00) 10^3/uL Norman # (Auto) (0.10-0.80) 10^3/uL Eos # (Auto) (0.10-0.30) 10^3/uL Baso # (Auto) (0.00-0.10) 10^3/uL Immature Gran # (Auto) (0.00-0.50) 10^3/uL Add Manual Diff Neutrophils % (Manual) (50-70) % Band Neutrophils % (4-12) % Lymphocytes % (Manual) (20-40) % Monocytes % (Manual) (2-8) % Eosinophils % (Manual) (1-3) % Absolute Neutrophils Lymphocytes # (Manual) Monocytes # (Manual) Eosinophils # (Manual) Clumped Platelets PT (9.2-11.2) SEC INR (0.9-1.1) APTT (22.8-31.4) SEC Sodium 139 D (136-145) mmol/L Potassium 3.4 L (3.5-5.1) mmol/L Chloride 105 (98-107) mmol/L Carbon Dioxide 20.8 L (21.0-32.0) mmol/L Anion Gap 16.6 H (5-15) mmol/L BUN 15 (7-18) mg/dL Creatinine 0.93 (0.51-1.17) mg/dL Est Cr Clr Drug Dosing TNP Estimated GFR (MDRD) > 60 mL/min Glucose 197 H (70-140) mg/dL POC Glucose (70-140) mg/dL Lactic Acid (0.4-2.0) mmol/L Calcium 8.1 L (8.7-10.3) mg/dL Total Bilirubin 0.6 (0.2-1.0) mg/dL AST 22 (15-37) U/L ALT 19 (14-63) U/L Alkaline Phosphatase 66 (46-116) U/L Troponin I 0.022 (0.000-0.056) ng/mL C-Reactive Protein (0.0-0.9) mg/dL B-Natriuretic Peptide 269 H (0-100) pg/mL Total Protein 5.8 L (6.4-8.2) g/dL Albumin 2.47 L (3.40-5.00) g/dL Specimen Type Urinvoid Urine Color Yellow (YELLOW) Urine Appearance Clear (CLEAR) Urine pH 5.5 (5.0-9.0) Ur Specific [place] >= 1.030 (1.005-1.030) Urine Protein 100 H (NEGATIVE) mg/dL Urine Glucose (UA) Negative (NEGATIVE) mg/dL Urine Ketones Negative (NEGATIVE) mg/dL Urine Occult Blood Trace-intact H (NEGATIVE) Urine Nitrite Negative (NEGATIVE) Urine Bilirubin Negative (NEGATIVE) Urine Urobilinogen 0.2 (0.2-1.0) E.U./dL Ur Leukocyte Esterase Trace H (NEGATIVE) Urine RBC 10-20 H (0-5) /HPF Urine WBC 5-10 H (0-5) /HPF Ur Epithelial Cells Rare /LPF Amorphous Sediment Moderate H (0/HPF) /HPF Urine Bacteria Not seen (NONE TO FEW) /HPF Urine Mucus Few H (NEGATIVE) /LPF SARS CoV-2 RNA Rapid RICHARD (NEGATIVE) 10/19/20 10/20/20 10/20/20 Range/Units 23:36 07:40 07:40 WBC 8.29 (5.00-10.00) 10^3/uL RBC 3.70 L (4.50-6.00) 10^6/uL Hgb 10.4 L (13.0-17.0) g/dL Hct 31.7 L (40.0-52.0) % MCV 85.7 (82.0-92.0) fL MCH 28.1 (27.0-31.0) pg MCHC 32.8 (32.0-36.0) g/dL RDW 15.8 H (11.5-14.5) % Plt Count 189 (150-400) 10^3/uL MPV 10.3 (7.4-10.4) fL Immature Gran % (Auto) 0.2 (0.0-5.0) % Neut % (Auto) 54.2 (50.0-70.0) % Lymph % (Auto) 27.1 (20.0-40.0) % Norman % (Auto) 13.4 H (2.0-8.0) % Eos % (Auto) 4.6 H (1.0-3.0) % Baso % (Auto) 0.5 (0.0-1.0) % Neut # (Auto) 4.49 (2.50-7.00) 10^3/uL Lymph # (Auto) 2.25 (1.00-4.00) 10^3/uL Norman # (Auto) 1.11 H (0.10-0.80) 10^3/uL Eos # (Auto) 0.38 H (0.10-0.30) 10^3/uL Baso # (Auto) 0.04 (0.00-0.10) 10^3/uL Immature Gran # (Auto) 0.02 (0.00-0.50) 10^3/uL Add Manual Diff Neutrophils % (Manual) (50-70) % Band Neutrophils % (4-12) % Lymphocytes % (Manual) (20-40) % Monocytes % (Manual) (2-8) % Eosinophils % (Manual) (1-3) % Absolute Neutrophils Lymphocytes # (Manual) Monocytes # (Manual) Eosinophils # (Manual) Clumped Platelets Moderate PT (9.2-11.2) SEC INR (0.9-1.1) APTT (22.8-31.4) SEC Sodium (136-145) mmol/L Potassium (3.5-5.1) mmol/L Chloride (98-107) mmol/L Carbon Dioxide (21.0-32.0) mmol/L Anion Gap (5-15) mmol/L BUN (7-18) mg/dL Creatinine (0.51-1.17) mg/dL Est Cr Clr Drug Dosing Estimated GFR (MDRD) mL/min Glucose (70-140) mg/dL POC Glucose (70-140) mg/dL Lactic Acid (0.4-2.0) mmol/L Calcium (8.7-10.3) mg/dL Total Bilirubin (0.2-1.0) mg/dL AST (15-37) U/L ALT (14-63) U/L Alkaline Phosphatase (46-116) U/L Troponin I 1.030 H* (0.000-0.056) ng/mL C-Reactive Protein 2.5 H (0.0-0.9) mg/dL B-Natriuretic Peptide (0-100) pg/mL Total Protein (6.4-8.2) g/dL Albumin (3.40-5.00) g/dL Specimen Type Urine Color (YELLOW) Urine Appearance (CLEAR) Urine pH (5.0-9.0) Ur Specific [place] (1.005-1.030) Urine Protein (NEGATIVE) mg/dL Urine Glucose (UA) (NEGATIVE) mg/dL Urine Ketones (NEGATIVE) mg/dL Urine Occult Blood (NEGATIVE) Urine Nitrite (NEGATIVE) Urine Bilirubin (NEGATIVE) Urine Urobilinogen (0.2-1.0) E.U./dL Ur Leukocyte Esterase (NEGATIVE) Urine RBC (0-5) /HPF Urine WBC (0-5) /HPF Ur Epithelial Cells /LPF Amorphous Sediment (0/HPF) /HPF Urine Bacteria (NONE TO FEW) /HPF Urine Mucus (NEGATIVE) /LPF SARS CoV-2 RNA Rapid RICHARD Negative (NEGATIVE) 10/20/20 10/20/20 10/20/20 Range/Units 07:40 07:40 09:48 WBC (5.00-10.00) 10^3/uL RBC (4.50-6.00) 10^6/uL Hgb (13.0-17.0) g/dL Hct (40.0-52.0) % MCV (82.0-92.0) fL MCH (27.0-31.0) pg MCHC (32.0-36.0) g/dL RDW (11.5-14.5) % Plt Count (150-400) 10^3/uL MPV (7.4-10.4) fL Immature Gran % (Auto) (0.0-5.0) % Neut % (Auto) (50.0-70.0) % Lymph % (Auto) (20.0-40.0) % Norman % (Auto) (2.0-8.0) % Eos % (Auto) (1.0-3.0) % Baso % (Auto) (0.0-1.0) % Neut # (Auto) (2.50-7.00) 10^3/uL Lymph # (Auto) (1.00-4.00) 10^3/uL Norman # (Auto) (0.10-0.80) 10^3/uL Eos # (Auto) (0.10-0.30) 10^3/uL Baso # (Auto) (0.00-0.10) 10^3/uL Immature Gran # (Auto) (0.00-0.50) 10^3/uL Add Manual Diff Neutrophils % (Manual) (50-70) % Band Neutrophils % (4-12) % Lymphocytes % (Manual) (20-40) % Monocytes % (Manual) (2-8) % Eosinophils % (Manual) (1-3) % Absolute Neutrophils Lymphocytes # (Manual) Monocytes # (Manual) Eosinophils # (Manual) Clumped Platelets PT (9.2-11.2) SEC INR (0.9-1.1) APTT 20.1 L (22.8-31.4) SEC Sodium 141 (136-145) mmol/L Potassium 3.7 (3.5-5.1) mmol/L Chloride 107 (98-107) mmol/L Carbon Dioxide 20.4 L (21.0-32.0) mmol/L Anion Gap 17.3 H (5-15) mmol/L BUN 12 (7-18) mg/dL Creatinine 0.79 (0.51-1.17) mg/dL Est Cr Clr Drug Dosing 84.18 Estimated GFR (MDRD) > 60 mL/min Glucose 130 (70-140) mg/dL POC Glucose 125 (70-140) mg/dL Lactic Acid (0.4-2.0) mmol/L Calcium 8.4 L (8.7-10.3) mg/dL Total Bilirubin (0.2-1.0) mg/dL AST (15-37) U/L ALT (14-63) U/L Alkaline Phosphatase (46-116) U/L Troponin I (0.000-0.056) ng/mL C-Reactive Protein (0.0-0.9) mg/dL B-Natriuretic Peptide (0-100) pg/mL Total Protein (6.4-8.2) g/dL Albumin (3.40-5.00) g/dL Specimen Type Urine Color (YELLOW) Urine Appearance (CLEAR) Urine pH (5.0-9.0) Ur Specific [place] (1.005-1.030) Urine Protein (NEGATIVE) mg/dL Urine Glucose (UA) (NEGATIVE) mg/dL Urine Ketones (NEGATIVE) mg/dL Urine Occult Blood (NEGATIVE) Urine Nitrite (NEGATIVE) Urine Bilirubin (NEGATIVE) Urine Urobilinogen (0.2-1.0) E.U./dL Ur Leukocyte Esterase (NEGATIVE) Urine RBC (0-5) /HPF Urine WBC (0-5) /HPF Ur Epithelial Cells /LPF Amorphous Sediment (0/HPF) /HPF Urine Bacteria (NONE TO FEW) /HPF Urine Mucus (NEGATIVE) /LPF SARS CoV-2 RNA Rapid RICHARD (NEGATIVE) Med Orders - Current: Current Medications Acetaminophen (Acetaminophen 325 Mg Tab) 650 mg PO Q4HR PRN PRN Reason: Pain Acetaminophen (Acetaminophen 325 Mg Tab) 650 mg PO TID [facility] Last Admin: 10/20/20 09:02 Dose: 650 mg Documented by: Aspirin (Aspirin 81 Mg Tab.Ec) 81 mg PO DAILY [facility] Last Admin: 10/20/20 08:57 Dose: Not Given Documented by: Atorvastatin Calcium (Atorvastatin 40 Mg Tab) 80 mg PO BEDTIME [facility] Carvedilol (Carvedilol 12.5 Mg Tab) 25 mg PO BID [facility] Last Admin: 10/20/20 09:04 Dose: 25 mg Documented by: Clopidogrel Bisulfate (Clopidogrel 75 Mg Tab) 75 mg PO DAILY [facility] Last Admin: 10/20/20 09:02 Dose: 75 mg Documented by: Dextrose/Water (50% Dextrose In Water 50 Ml Syringe) 50 ml IV ASDIRECTED PRN PRN Reason: Hypoglycemia Escitalopram Oxalate (Escitalopram 10 Mg Tab) 10 mg PO DAILY [facility] Last Admin: 10/20/20 09:03 Dose: 10 mg Documented by: Famotidine (Famotidine 20 Mg Tab) 20 mg PO BID [facility] Last Admin: 10/20/20 09:04 Dose: 20 mg Documented by: Fluticasone Propionate (Fluticasone Propionate Nasal [place] 16 Gm Bottle) 0 gm NASBOTH BID [facility] Last Admin: 10/20/20 09:55 Dose: Not Given Documented by: Glucagon (Glucagon,Human Recombinant 1 Mg Vial) 1 mg IM ASDIRECTED PRN PRN Reason: Hypoglycemia Guaifenesin (Guaifenesin 600 Mg Tab.Er) 600 mg PO BID [facility] Last Admin: 10/20/20 09:03 Dose: 600 mg Documented by: Hydralazine HCl (Hydralazine 50 Mg Tab) 50 mg PO TID [facility] Last Admin: 10/20/20 09:03 Dose: 50 mg Documented by: Heparin Sodium/Dextrose () 250 mls @ 9.376 mls/hr IV TITRATE [facility]; Protocol Last Admin: 10/20/20 10:22 Dose: 12 units/kg/hr, 9.376 mls/hr Documented by: Insulin Aspart (Insulin Aspart 100 Units/Ml 3 Ml Pen) 0 unit SUBCUT WITHMEALSANDBED [facility]; Protocol Last Admin: 10/20/20 08:14 Dose: Not Given Documented by: Insulin Glargine (Insulin Glargine,Human Rec. Analog 100 Units/Ml 3 Ml Pen) 17 units SUBCUT DAILY [facility] Last Admin: 10/20/20 09:55 Dose: Not Given Documented by: Lisinopril (Lisinopril 20 Mg Tab) 20 mg PO BID [facility] Last Admin: 10/20/20 09:02 Dose: 20 mg Documented by: Loratadine (Loratadine 10 Mg Tab) 10 mg PO DAILY [facility] Last Admin: 10/20/20 09:03 Dose: 10 mg Documented by: Mirtazapine (Mirtazapine 15 Mg Tab) 15 mg PO BEDTIME [facility] Discontinued Medications Aspirin (Aspirin 81 Mg Tab.Chew) 324 mg PO ONETIME ONE Stop: 10/20/20 08:43 Last Admin: 10/20/20 08:48 Dose: 324 mg Documented by: Aspirin (Aspirin 81 Mg Tab.Chew) Confirm Administered Dose 324 mg .ROUTE .STK- MED ONE Stop: 10/20/20 08:45 Last Admin: 10/20/20 08:48 Dose: Not Given Documented by: Ceftriaxone Sodium (Ceftriaxone 2 Gm Vial) 2 gm IVPUSH ONETIME ONE Stop: 10/19/20 23:37 Last Admin: 10/19/20 23:43 Dose: 2 gm Documented by: Furosemide (Furosemide 40 Mg/4 Ml Vial) 20 mg IVPUSH NOW ONE Stop: 10/20/20 09:49 Last Admin: 10/20/20 10:14 Dose: 20 mg Documented by: Heparin Sodium (Porcine) (Heparin Sodium 5,000 Units/Ml Vial) 4,000 units IVPUSH ONETIME ONE Stop: 10/20/20 10:24 Last Admin: 10/20/20 10:25 Dose: 4,000 units Documented by: Sodium Chloride (Normal Saline) 100 mls @ 200 mls/hr IV ASDIRECTED [facility] Last Admin: 10/20/20 03:16 Dose: 200 mls/hr Documented by: Iopamidol (Iopamidol 755 Mg/Ml 75 Ml Bottle) 75 ml IVPUSH ONETIME ONE Stop: 10/20/20 02:02 Last Admin: 10/20/20 03:16 Dose: 75 ml Documented by: Nitroglycerin (Nitroglycerin 0.4 Mg Tab.Sl) 0.4 mg SL ONETIME ONE Stop: 10/19/20 23:41 Last Admin: 10/19/20 23:23 Dose: 0.4 mg Documented by: Sodium Chloride (Sodium Chloride 0.9% 10 Ml Syringe) 10 ml FLUSH Q8HR PRN PRN Reason: keep vein open Last Admin: 10/19/20 23:43 Dose: 10 ml Documented by: - Exam Physical Findings Comments:: GENERAL: Well-appearing elderly white male lying in hospital bed in no acute distress. and daughter at bedside. HEENT: Normocephalic, atraumatic. Conjunctiva clear. Nares patent without discharge. Mucous membranes mildly dry. NECK: Supple, no masses. CV: Regular rate and rhythm, 3/6 systolic murmur throughout precordium loudest at base with radiation to bilateral carotids, no rubs or gallops. 2+ radial pulses. PULMONARY: Normal effort, clear to auscultation bilaterally, no wheezes, rales, or rhonchi. ABDOMEN: Positive bowel sounds, soft, nontender, nondistended. EXTREMITIES: No edema, cyanosis, or clubbing. MUSCULOSKELETAL/NEUROLOGICAL: L sided weakness. DERMATOLOGIC: No rashes or suspicious lesions in exposed areas. PSYCHIATRIC: Alert, interactive, mildly flattened affect, mild dysarthria.
[2020-10-20] MEDS ORDERED: Mirtazapine 15 MG Tab PO SCH (21:00)
[2020-10-20] MEDS ORDERED: atorvaSTATin 40 MG Tab PO SCH (21:00)
== END 2020-10-20 12:53 | DRG 280 ==
LOC: SUPCPDRO 23:18 → KA.ED 23:18 → KA.MS 10-20 03:19 → UNDOADMIN 10-20 03:27
PROVIDERS: ADMIT Physician Assistant Medical; ATTEND Family Medicine
DX: I21.4 Non-ST elevation (NSTEMI) myocardial infarction (principal); J96.01 Acute respiratory failure with hypoxia; E46 Unspecified protein-calorie malnutrition; I69.354 Hemiplegia and hemiparesis following cerebral infarction affecting left non-dominant side; I35.0 Nonrheumatic aortic (valve) stenosis; I11.0 Hypertensive heart disease with heart failure; I50.9 Heart failure, unspecified; I65.21 Occlusion and stenosis of right carotid artery; K21.9 Gastro-esophageal reflux disease without esophagitis; Z66 Do not resuscitate; D64.9 Anemia, unspecified; F32.9 Major depressive disorder, single episode, unspecified; G47.00 Insomnia, unspecified; J81.1 Chronic pulmonary edema; E78.00 Pure hypercholesterolemia, unspecified; R09.02 Hypoxemia; H54.7 Unspecified visual loss; I10 Essential (primary) hypertension; E11.9 Type 2 diabetes mellitus without complications; Z79.01 Long term (current) use of anticoagulants; Z87.891 Personal history of nicotine dependence; I69.328 Other speech and language deficits following cerebral infarction; Z79.82 Long term (current) use of aspirin; Z79.4 Long term (current) use of insulin; Z79.899 Other long term (current) drug therapy; Z20.822 Contact with and (suspected) exposure to COVID-19
CPT/HCPCS: 36415; 71045; 71260; 80048; 80053; 81001; 82947; 83605; 83880; 84484; 85025; 85610; 85730; 86140; 87040; 93005; 93041; 96374; 99285-25; A9270-GY; J0696; J1644; J1815-GY; J1940; Q9967; U0002